=== PATIENT | female | born 1970 | race Caucasian/White ===

== ENCOUNTER → 2020-06-14 15:28 | Outpatient (CLI) | payer OTHER, SELFPAY | PROVIDERS: Visit Provider Physician Assistant | DX: N34.3 Urethral syndrome, unspecified (principal) | CPT/HCPCS: 87077; 87086; 87186 ==

== ENCOUNTER → 2023-04-18 14:18 | Outpatient (CLI) | payer BC, SELFPAY ==
[2023-04-18 15:41] LABS: Appearance Urine UA CLOUDY; Bilirubin Urine UA NEGATIVE (NEGATIVE); Color Urine UA YELLOW; Glucose Urine UA NEGATIVE (Negative); Ketones Urine UA NEGATIVE (NEGATIVE); Leukocyte Esterase Urine UA 2+ (NEGATIVE); Nitrite Urine UA POSITIVE (Negative); Occult Blood Urine UA 3+ (Negative); Protein Urine UA 1+ (Negative); Urobilinogen Urine UA 0.2 E.U./dL (0.2)
[2023-04-18 15:51] LABS: RBC Urine 10-30/HPF (0-5/HPF); WBC Urine 30-100/HPF (0-5/HPF)
[2023-04-18 15:52] LABS: Bacteria Urine Many (>30); Culture Indicated Urine Specimen Cultured; Squamous Epithelial Cell Urine 1-5 /HPF (0-5/HPF); Transitional Epi Cells Urine 0-1/HPF (0-5/HPF)
== END ==
PROVIDERS: PCP Student in an Organized Health Care Education/Training Program; Referring Provider Obstetrics & Gynecology; Visit Provider Obstetrics & Gynecology
DX: R35.0 Frequency of micturition (principal)
CPT/HCPCS: 81001; 87077; 87086; 87186

== ENCOUNTER → 2023-12-21 15:21 | Outpatient (CLI) | payer BC, SELFPAY ==
--- NOTE | 2023-12-21 15:22 | DI.CT.S_ITS ---
PROCEDURE: CT KIDNEY URETER BLADDER (KUB) INDICATIONS: HEMATURIA,PAINLESS,NO PROTENINURIA TECHNIQUE: Axial sections were acquired from the lung bases to the pubic symphysis. Coronal and sagittal reformats were performed. For radiation dose reduction, the following was used: automated exposure control, adjustment of mA and/or kV according to patient size. COMPARISON: None. FINDINGS: Image quality: Diagnostic. Lower Chest: No significant findings. URINARY: Right Kidney: No stones or hydronephrosis. Right Ureter: No hydroureter. Left Kidney: No stones or hydronephrosis. Left Ureter: No hydroureter. Bladder: Normal wall thickness. No stones. ABDOMEN: Liver: No contour-deforming solid mass. Gallbladder: No radiopaque gallstones or wall thickening. Biliary ducts: No biliary dilation. Pancreas: No ductal dilation. Spleen: Size is within normal limits. Adrenal Glands: No adrenal nodules. Stomach and Bowel: Normal colonic caliber, without significant wall thickening. Peritoneum: No abnormal intraperitoneal fluid. No free air. Ventral Wall: No hernia. Abdominal Nodes: No enlarged retroperitoneal or mesenteric lymph nodes. Vessels: Aorta and inferior vena cava are normal in size. PELVIS: Pelvic Organs: Unremarkable. Pelvic Nodes: Unremarkable. Miscellaneous: No inguinal hernias are seen. Bones: Unremarkable. IMPRESSION: No obstructing stones or hydronephrosis. Normal noncontrast appearance of the kidneys. No cause for patient's symptoms is identified. Dictated by: Pb Sahu M.D. on 12/23/2023 at 10:14 Approved by: Pb Sahu M.D. on 12/23/2023 at 10:17
== END ==
PROVIDERS: Family Provider Student in an Organized Health Care Education/Training Program; PCP Student in an Organized Health Care Education/Training Program; Referring Provider Student in an Organized Health Care Education/Training Program; Visit Provider Student in an Organized Health Care Education/Training Program
DX: R31.21 Asymptomatic microscopic hematuria (principal)
CPT/HCPCS: 74176

== ENCOUNTER 2024-03-07 13:45 | Outpatient (RCR) | payer BC, SELFPAY ==
--- NOTE | 2023-10-05 18:45 | PT.OIE ---
Current Diagnoses Unspecified urinary incontinence (10/05/23) Past Medical History (Last Updated 06/14/20 @ 15:34 by Neli Silveira PA-C) UTI (urinary tract infection) Visit Care Team Role Provider Type Binta Heaton PA-C Family Provider Physician Software Configuration Specialist Primary Care Provider Specialty: Medical Address: [place], [address] Email: [email or web address] Buster Milligan MD Attending Provider Non-Staff Referring Provider Specialty: BIOLOGY PROFESSOR Address: [address] [place] [address], [address], [place], [address] Email: Physical Therapy Initial Evaluation PT-OP-A Visit Information Start: 09/27/23 17:50 Freq: Status: Active Protocol: Document 10/05/23 13:52 LRN (Rec: 10/05/23 18:39 LRN [id number]) Out-Patient Physical Therapy Visit Information Visit Information Visit Type Initial Evaluation Visit Start Time 13:52 Visit Stop Time 14:32 Visit Number 1 Evaluation Information Evaluation Date 10/05/23 Precautions Precautions Total hysterectomy 04/05. PT-OP-B Current Condition Start: 09/27/23 17:50 Freq: Status: Active Protocol: Document 10/05/23 13:52 LRN (Rec: 10/05/23 18:39 LRN [id number]) Current Condition History of Current Condition Onset Date Apr 2023 Current Complaints Leaking all the time, especially with sit<>stand transfer. History of Current Condition Total hyste (04/08/23) in [place], got severe bladder infection then she started leaking urine and the leakage has remained the same although cleared of infection. States she leaks all the time. If she drinks what she feels is normal amount, then she leaks all the time. Leaks without an urge, but leaks all the time. Urinary leakage after 3rd child. Prior Treatments and Tests None. Developmental History Developmental History Has had 1-2 UTI's per year since isabel-menopause (past 7-8 yrs). Treatment Goals Patient/Caregiver Goals Pt goals: HEP. Remain continent with sit<> stand, laugh, sneeze cough, walking 2-3 miles. Can't go on boat with spouse, cant go on plan to see parents . Wants to go to [employer] game, needs to be near bathroom at all times. Personal Factors Other Personal Factors That May Effect 3 C-sections (1997, 2000, 2004 Therapy/Recovery ), Hysterectomy 04/05. PT-OP-C Subjective Start: 09/27/23 17:50 Freq: Status: Active Protocol: Document 10/05/23 13:52 LRN (Rec: 10/05/23 18:39 LRN [id number]) Patient Questionnaires Pelvic Pain and Urgency/Frequency Patient Symptom Scale Pelvic Pain Score 17 PT-OP-I Pelvic Floor Start: 09/27/23 17:50 Freq: Status: Active Protocol: Document 10/05/23 13:52 LRN (Rec: 10/05/23 18:39 LRN [id number]) Pelvic Floor Assessment Urine Pelvic Floor Surgery No Urinary Symptoms Urge Sensation Other Urinary Symptoms Leaks uncontrolled through the day. URge to urinate during the night. Leakage Cause Cough,Exercise,Sneeze,Urge Other Leakage Causes Leakage ranges from small to large. Sometimes leaks with coughing, sneezing, lifting. Voiding Frequency 20 Nocturia 4 Pads Used In 24 Hours 20 Urine Pad Type Maxi Pad,Depends Bowel Other Bowel Symptoms 1 Bowel Movement Frequency 1/day Talbot Stool Chart Comments Stool type 3, 4 Pelvic Clock Pelvic Clock 12-3 Tenderness Pelvic Clock 3-6 Tenderness Pelvic Clock 6-9 Tenderness Pelvic Clock 9-12 Tenderness Pelvic Clock Other Very tender at 2 & 4. Small vaginal opening Prolapse Cystocele Grade 1 Prolapse Comments End vaginal canal is palpable at tip of inserted finger ~8.5 cm deep. Perineal Descent Bearing Present Contraction Ability Manual Muscle Testing Left 3 Manual Muscle Testing Right 3 Muscle Endurance (Seconds) 3 Number of Quick Contractions In 10 7 Seconds PT-OP-J Posture/Palpation/Skin Start: 09/27/23 17:50 Freq: Status: Active Protocol: Document 10/05/23 13:52 LRN (Rec: 10/05/23 18:39 LRN [id number]) Posture Evaluation Position Standing Head/C-Spine Posture Side Bent Right,Forward Head L-Spine Posture Increased Lordosis Shoulder Posture (L) Elevated Pelvis Posture Anteriorly Tilted Comments Posture Comments Dowagers hump, flat upper thoracic spine. PT-OP-K Range of Motion Start: 09/27/23 17:50 Freq: Status: Active Protocol: Document 10/05/23 13:52 LRN (Rec: 10/05/23 18:39 LRN [id number]) Lumbar Spine Range of Motion Lumbar Spine Active Degrees Testing Position Standing Flexion 80 Extension 15 Rotation Left 20 Rotation Right 20 Lateral Flexion Left 15 Lateral Flexion Right 15 Hip Goniometric Range of Motion Hip Right Passive Testing Position Supine Internal Rotation 20 External Rotation 50 Comments Approximate measurements Left Passive Testing Position Supine Internal Rotation 30 External Rotation 70 Comments Approximate measurements PT-OP-M Strength Start: 09/27/23 17:50 Freq: Status: Active Protocol: Document 10/05/23 13:52 LRN (Rec: 10/05/23 18:39 LRN [id number]) Hip Strength Hip Manual Muscle Testing Right External Rotation 5 Normal Internal Rotation 5 Normal Left External Rotation 5 Normal Internal Rotation 5 Normal PT-OP-Q Treatments Start: 09/27/23 17:50 Freq: Status: Active Protocol: Document 10/05/23 13:52 LRN (Rec: 10/05/23 18:39 LRN [id number]) Self-Care/Home Management Treatment Education Other Education Discussed results of evaluation, goals, and plan of care (POC) with pt, discussed attendance/cx/dns policy; pt agreeable to goals, attendance /cx/dns policy and POC. Discussed and educated pt in specifics for completion of in use of Bladder Diary and I/S in tracking for 1 week. Discussed use of 2 different diaries for tracking of bladder for next 7 days. Activities Self-Care/Home Management Activities Issued bowel bladder diary and BM types. Issued & reviewed HEP: Kegel ex's and discussed exercise of Quick Flicks, Long Holds and aggrevator (sit<>stand). PT-OP-T Assessment and Plan Start: 09/27/23 17:50 Freq: Status: Active Protocol: Document 10/05/23 13:52 LRN (Rec: 10/05/23 18:39 LRN [id number]) Physical Therapy Assessment Rehab Potential Rehabilitation Potential Good Evaluation Complexity Number of Personal Factors/Comorbidities 1-2 Number of Body Systems Impaired 4 or More Clinical Presentation at Evaluation Evolving Impairments Impairments Activity Tolerance, Coordination,Posture,ROM,Soft Tissue Mobility,Strength, Transfers Goals Four Impairment Pt is not able to hold her urine for any length of time. Impairment Can't go on boat with spouse, can't go on plane to see parents, can't go to [employer] game because needs to carry heavy pads with her and needs to be near a bathroom at all times. Short Term Goal (STG) Pt will be able to coordinate breathe with transfers and ADLs for improved core pressure management. STG Duration 6 wks-11/16/23 Usp Goal (LTG) Improve PF strength with pt able to go on a boat with spouse, fly on a plane, or go to a [employer] game without needing multiple urinary replacement pads. LTG Duration 12 wks-12/28/23 Three Impairment Urge urinary incontinence Impairment Urinary incontinence immediately with an urge. Short Term Goal (STG) Pt will be educated in urinary urge deference technique. STG Duration 2 wks-10/19/23 Crew Leader Goal (LTG) Improve PF strength with pt able to maintain continence in the presence of an urge or strong urge. LTG Duration 12 wks-12/28/23 Two Impairment Stress urinary incontinence Impairment Urinary incontinence with sit< >stand, cough, sneeze, laughing. Short Term Goal (STG) Pt will be educated in normal voiding times and amounts and will be able to identify urge to void and will be able to void on the 1st urinary urge without leakage. STG Duration 6 wks-11/16/23 Usp Goal (LTG) Pt will have decreased complaints of urinary stress incontinent symptoms and will be able to maintain continence with sit<>stand, laugh, sneeze cough, walking 2-3 miles. Can't go on boat with spouse, cant go on plan to see parents . Wants to go to [employer] game, needs to be near bathroom at all times. LTG Duration 12 wks-12/28/23 One Impairment Pt lacks an independent self care HEP. Short Term Goal (STG) Pt will be educated in proper deep breathing to help manage core pressure. STG Duration 2 wks-10/19/23 Crew Leader Goal (LTG) Pt will be independent in a self care HEP for PF/hip/core strengthening. LTG Duration 12 wks-12/28/23 Assessment Summary Assessment Pt is a 53 yo female who appears to have mixed urinary incontinence and inability to hold her urine for any length of time. She has tenderness of the PF around the PF clock, that may be due to tissue irritation (pt has prescription for estrogen therapy) or PF tightness. Pt will benefit from skilled physical therapy for improving her core pressure management, education in transfers and ADLs with improved core pressure management, and possibly PF relaxation techniques and stretching, followed by PF strengthening. Further treatment will be determined based on review of the pt's bladder diary and assessment of hip/core strength and recheck of PF strength. It is expected that the pt's progress might be hindered by soft tissue restriction form her 3 C- sections and recent hysterectomy. The pt will benefit from skilled physical therapy to achieve the above stated goals. Physical Therapy Plan Frequency and Duration Frequency of Treatment 1x/Week Duration of treatment (weeks) 12 Plan of Care Start Date 10/05/23 Plan of Care End Date 12/28/23 Therapeutic Interventions Therapeutic Interventions Home Exercise Program,Joint Mobilizations,Manual Therapy, Neuromuscular Re-education, Self-Care/Home Management,Soft Tissue Mobilization,Taping, Therapeutic Activities, Therapeutic Exercises Modalities Biofeedback,Electric Stimulation Next Visit Focus/Plan Next Visit Plan POC: Pt education, Manual therapy, Biofeedback with vaginal sensor, Therapeutic Exercises, Therapeutic Activities, Neuromuscular Reeducation. Next: MMT hip/trunk, and recheck PF strength anter/ assistant associate professor. Review bladder diary, pt education in bladder retraining with urge deference technique, proper Kegel without use of substitute muscles, education of reduction of intra-abdominal pressure, proper deep breathing, and proper breathing with transfers and body mechanics. Ther Ex: PF/core/hip strengthening, improve R hip mobility. Manual therapy: and hyste scar mob, bladder mob, ilioposas release - posture correction.
--- NOTE | 2023-10-05 18:46 | PT.OPPOC ---
Physical, Occupational & Speech Therapy At [facility] Current Diagnoses Unspecified urinary incontinence (10/05/23) Visit Care Team Role Provider Type Binta Heaton PA-C Family Provider Physician Landscaping Supervisor Primary Care Provider Specialty: Medical Address: [place], [address] Email: [email or web address] Pharmaceutical Buster Milligan MD Attending Provider Non-Staff Referring Provider Specialty: HOT SAW HELPER Address: [address] [place] [address], [facility] [address], [place], [address] Email: Plan Of Care PT-OP-T Assessment and Plan Start: 09/27/23 17:50 Freq: Status: Active Protocol: Document 10/05/23 13:52 LRN (Rec: 10/05/23 18:39 LRN [id number]) Physical Therapy Assessment Rehab Potential Rehabilitation Potential Good Evaluation Complexity Number of Personal Factors/Comorbidities 1-2 Number of Body Systems Impaired 4 or More Clinical Presentation at Evaluation Evolving Impairments Impairments Activity Tolerance, Coordination,Posture,ROM,Soft Tissue Mobility,Strength, Transfers Goals Four Impairment Pt is not able to hold her urine for any length of time. Impairment Can't go on boat with spouse, can't go on plane to see parents, can't go to [employer] game because needs to carry heavy pads with her and needs to be near a bathroom at all times. Short Term Goal (STG) Pt will be able to coordinate breathe with transfers and ADLs for improved core pressure management. STG Duration 6 wks-11/16/23 Mcc Goal (LTG) Improve PF strength with pt able to go on a boat with spouse, fly on a plane, or go to a [employer] game without needing multiple urinary replacement pads. LTG Duration 12 wks-12/28/23 Three Impairment Urge urinary incontinence Impairment Urinary incontinence immediately with an urge. Short Term Goal (STG) Pt will be educated in urinary urge deference technique. STG Duration 2 wks-10/19/23 Irrigating Pump Operator Goal (LTG) Improve PF strength with pt able to maintain continence in the presence of an urge or strong urge. LTG Duration 12 wks-12/28/23 Two Impairment Stress urinary incontinence Impairment Urinary incontinence with sit< >stand, cough, sneeze, laughing. Short Term Goal (STG) Pt will be educated in normal voiding times and amounts and will be able to identify urge to void and will be able to void on the 1st urinary urge without leakage. STG Duration 6 wks-11/16/23 Mcc Goal (LTG) Pt will have decreased complaints of urinary stress incontinent symptoms and will be able to maintain continence with sit<>stand, laugh, sneeze cough, walking 2-3 miles. Can't go on boat with spouse, cant go on plan to see parents . Wants to go to [employer], needs to be near bathroom at all times. LTG Duration 12 wks-12/28/23 One Impairment Pt lacks an independent self care HEP. Short Term Goal (STG) Pt will be educated in proper deep breathing to help manage core pressure. STG Duration 2 wks-10/19/23 Mcc Goal (LTG) Pt will be independent in a self care HEP for PF/hip/core strengthening. LTG Duration 12 wks-12/28/23 Assessment Summary Assessment Pt is a 53 yo female who appears to have mixed urinary incontinence and inability to hold her urine for any length of time. She has tenderness of the PF around the PF clock, that may be due to tissue irritation (pt has prescription for estrogen therapy) or PF tightness. Pt will benefit from skilled physical therapy for improving her core pressure management, education in transfers and ADLs with improved core pressure management, and possibly PF relaxation techniques and stretching, followed by PF strengthening. Further treatment will be determined based on review of the pt's bladder diary and assessment of hip/core strength and recheck of PF strength. It is expected that the pt's progress might be hindered by soft tissue restriction form her 3 C- sections and recent hysterectomy. The pt will benefit from skilled physical therapy to achieve the above stated goals. Physical Therapy Plan Frequency and Duration Frequency of Treatment 1x/Week Duration of treatment (weeks) 12 Plan of Care Start Date 10/05/23 Plan of Care End Date 12/28/23 Therapeutic Interventions Therapeutic Interventions Home Exercise Program,Joint Mobilizations,Manual Therapy, Neuromuscular Re-education, Self-Care/Home Management,Soft Tissue Mobilization,Taping, Therapeutic Activities, Therapeutic Exercises Modalities Biofeedback,Electric Stimulation Next Visit Focus/Plan Next Visit Plan POC: Pt education, Manual therapy, Biofeedback with vaginal sensor, Therapeutic Exercises, Therapeutic Activities, Neuromuscular Reeducation. Next: MMT hip/trunk, and recheck PF strength anter/ oracle database developer. Review bladder diary, pt education in bladder retraining with urge deference technique, proper Kegel without use of substitute muscles, education of reduction of intra-abdominal pressure, proper deep breathing, and proper breathing with transfers and body mechanics. Ther Ex: PF/core/hip strengthening, improve R hip mobility. Manual therapy: and hyste scar mob, bladder mob, ilioposas release - posture correction. Plan of Care Dates Plan of Care Start Date 10/05/23 Plan of Care End Date 12/28/23 Electronically Signed by: Jihan Tai, PT 10/05/23 1686 If you are in agreement with this Plan of Care, please return a signed and dated copy. I have reviewed this Plan of Care and certify that the skilled therapy services above are required to meet the patient?s needs. Physician Signature Date Printed Name and Credentials Clinical Instructor Signature Printed Name and Credentials
--- NOTE | 2023-10-22 15:57 | PT.OTN ---
Current Diagnoses Unspecified urinary incontinence (10/22/23) Physical Therapy Treatment Note PT-OP-A Visit Information Start: 09/27/23 17:50 Freq: Status: Active Protocol: Document 10/22/23 15:39 LRN (Rec: 10/22/23 15:56 LRN [id number]) Out-Patient Physical Therapy Visit Information Visit Information Visit Type Treatment Note Visit Start Time 13:45 Visit Stop Time 14:30 Visit Number 2 PT-OP-B Current Condition Start: 09/27/23 17:50 Freq: Status: Active Protocol: Document 10/05/23 13:52 LRN (Rec: 10/05/23 18:39 LRN [id number]) Current Condition History of Current Condition Onset Date Apr 2023 Current Complaints Leaking all the time, especially with sit<>stand transfer. History of Current Condition [place]04[place]08/23[place], got severe bladder infection then she started leaking urine and the leakage has remained the same although cleared of infection. States she leaks all the time. If she drinks what she feels is normal amount, then she leaks all the time. Leaks without an urge, but leaks all the time. Urinary leakage after 3rd child. Prior Treatments and Tests None. Developmental History Developmental History Has had 1-2 UTI's per year since isabel-menopause (past 7-8 yrs). Treatment Goals Patient/Caregiver Goals Pt goals: HEP. Remain continent with sit<> stand, laugh, sneeze cough, walking 2-3 miles. Can't go on boat with spouse, cant go on plan to see parents . Wants to go to [employer] game, needs to be near bathroom at all times. Personal Factors Other Personal Factors That May Effect 3 C-sections (1997, 2000, 2004 Therapy/Recovery ), Hysterectomy 04/05. PT-OP-C Subjective Start: 09/27/23 17:50 Freq: Status: Active Protocol: Document 10/22/23 15:39 LRN (Rec: 10/22/23 15:56 LRN [id number]) OP-PT Subjective Patient Comments Patient Comments States have had less leakage during the night. Did bladder diary. PT-OP-I Pelvic Floor Start: 09/27/23 17:50 Freq: Status: Active Protocol: Document 10/22/23 15:39 LRN (Rec: 10/22/23 15:56 LRN [id number]) Pelvic Floor Assessment Perineal Descent Resting Absent Bearing Present SEMG (uV) Baseline 1.8 Quick Contraction 16.7 10 Second Contraction 11.5 Recruitment Pattern Good Relaxation Fair Holding Poor/Slow Stability of Hold Poor/Slow SEMG Stability of Rest Good PT-OP-J Posture/Palpation/Skin Start: 09/27/23 17:50 Freq: Status: Active Protocol: Document 10/05/23 13:52 LRN (Rec: 10/05/23 18:39 LRN [id number]) Posture Evaluation Position Standing Head/C-Spine Posture Side Bent Right,Forward Head L-Spine Posture Increased Lordosis Shoulder Posture (L) Elevated Pelvis Posture Anteriorly Tilted Comments Posture Comments Dowagers hump, flat upper thoracic spine. PT-OP-K Range of Motion Start: 09/27/23 17:50 Freq: Status: Active Protocol: Document 10/05/23 13:52 LRN (Rec: 10/05/23 18:39 LRN [id number]) Lumbar Spine Range of Motion Lumbar Spine Active Degrees Testing Position Standing Flexion 80 Extension 15 Rotation Left 20 Rotation Right 20 Lateral Flexion Left 15 Lateral Flexion Right 15 Hip Goniometric Range of Motion Hip Right Passive Testing Position Supine Internal Rotation 20 External Rotation 50 Comments Approximate measurements Left Passive Testing Position Supine Internal Rotation 30 External Rotation 70 Comments Approximate measurements PT-OP-M Strength Start: 09/27/23 17:50 Freq: Status: Active Protocol: Document 10/05/23 13:52 LRN (Rec: 10/05/23 18:39 LRN [id number]) Hip Strength Hip Manual Muscle Testing Right External Rotation 5 Normal Internal Rotation 5 Normal Left External Rotation 5 Normal Internal Rotation 5 Normal PT-OP-Q Treatments Start: 09/27/23 17:50 Freq: Status: Active Protocol: Document 10/22/23 15:39 LRN (Rec: 10/22/23 15:56 LRN [id number]) Therapeutic Exercises Supine Exercises PF 5 SH contractions Supine Exercise Name 5 SH/10 SR Equipment Used Vemg biofeedback Reps/Minutes 10x Comments Extra time needed for training on biofeedback PF Long hold contractions Supine Exercise Name Long Hold contractions 10 SH/ 10 SR Equipment Used Vemg biofeedback Reps/Minutes 10 x 2 Comments Extra time needed for training on biofeedback PF Quick Contractions Supine Exercise Name Quick Flicks 2 SH/5 SR Equipment Used Vemg biofeedback Reps/Minutes 10x 2 Comments Extra time needed for training on biofeedback Resting Supine Exercise Name Resting tone per Vemg biofeedback 1.8 mVs Reps/Minutes 3' Comments Extra time needed for insertion of rectal electrode and positioning of pt PT-OP-T Assessment and Plan Start: 09/27/23 17:50 Freq: Status: Active Protocol: Document 10/22/23 15:39 LRN (Rec: 10/22/23 15:56 LRN [id number]) Physical Therapy Assessment Goals Four Impairment Pt is not able to hold her urine for any length of time. Impairment Can't go on boat with spouse, can't go on plane to see parents, can't go to [employer] game because needs to carry heavy pads with her and needs to be near a bathroom at all times. Short Term Goal (STG) Pt will be able to coordinate breathe with transfers and ADLs for improved core pressure management. STG Duration 6 wks-11/16/23 Prison Goal (LTG) Improve PF strength with pt able to go on a boat with spouse, fly on a plane, or go to a [employer] game without needing multiple urinary replacement pads. LTG Duration 12 wks-12/28/23 Three Impairment Urge urinary incontinence Impairment Urinary incontinence immediately with an urge. Short Term Goal (STG) Pt will be educated in urinary urge deference technique. STG Duration 2 wks-10/19/23 Prison Goal (LTG) Improve PF strength with pt able to maintain continence in the presence of an urge or strong urge. LTG Duration 12 wks-12/28/23 Two Impairment Stress urinary incontinence Impairment Urinary incontinence with sit< >stand, cough, sneeze, laughing. Short Term Goal (STG) Pt will be educated in normal voiding times and amounts and will be able to identify urge to void and will be able to void on the 1st urinary urge without leakage. STG Duration 6 wks-11/16/23 Auto Apprentice Mechanic Goal (LTG) Pt will have decreased complaints of urinary stress incontinent symptoms and will be able to maintain continence with sit<>stand, laugh, sneeze cough, walking 2-3 miles. Can't go on boat with spouse, cant go on plan to see parents . Wants to go to [employer] game, needs to be near bathroom at all times. LTG Duration 12 wks-12/28/23 One Impairment Pt lacks an independent self care HEP. Short Term Goal (STG) Pt will be educated in proper deep breathing to help manage core pressure. STG Duration 2 wks-10/19/23 Prison Goal (LTG) Pt will be independent in a self care HEP for PF/hip/core strengthening. LTG Duration 12 wks-12/28/23 Assessment Summary Assessment Pt is a 53 yo female who appears to have mixed urinary incontinence and inability to hold her urine for any length of time following recent hysterectomy; she has tenderness around the PF clock , due to tissue irritation or PF tightness, soft tissue restriction from her 3 C- sections and recent hysterectomy. Today she was not able to tolerate a vaginal electrode, but was able to tolerate use of anal electrode in vaginal canal. Pt demonstrates a good resting tone of 1.8 mV's, but shows difficulty with lowering her resting tone after PF contractions. Urinary leakage also contributed by small vaginal opening and use of substitute ms and muscle guarding of PF. Will need to review bladder diary at next visit. Physical Therapy Plan Next Visit Focus/Plan Next Note Type Treatment Note Next Visit Plan Next: Review Bladder Diary. MMT hip/trunk, and recheck PF strength anter/oil rag washer. Pt education in bladder retraining with urge deference technique, proper Kegel without use of substitute muscles, education of reduction of intra-abdominal pressure, proper deep breathing, and proper breathing with transfers and body mechanics. Ther Ex: PF/core/hip strengthening, improve R hip mobility. Manual therapy: and hyste scar mob, bladder mob, ilioposas release - posture correction. POC: Pt education, Manual therapy, Biofeedback with vaginal sensor, Therapeutic Exercises, Therapeutic Activities, Neuromuscular Reeducation.
--- NOTE | 2023-10-29 15:49 | PT.OTN ---
Current Diagnoses Unspecified urinary incontinence (10/29/23) Physical Therapy Treatment Note PT-OP-A Visit Information Start: 09/27/23 17:50 Freq: Status: Active Protocol: Document 10/29/23 13:51 LRN (Rec: 10/29/23 14:33 LRN [id number]) Out-Patient Physical Therapy Visit Information Visit Information Visit Type Treatment Note Visit Start Time 13:51 Visit Stop Time 14:30 Visit Number 3 Evaluation Information Evaluation Date 10/05/23 Precautions Precautions Total hysterectomy 04/05. PT-OP-B Current Condition Start: 09/27/23 17:50 Freq: Status: Active Protocol: Document 10/05/23 13:52 LRN (Rec: 10/05/23 18:39 LRN [id number]) Current Condition History of Current Condition Onset Date Apr 2023 Current Complaints Leaking all the time, especially with sit<>stand transfer. History of Current Condition Total hyste (04/08/23) in [place], got severe bladder infection then she started leaking urine and the leakage has remained the same although cleared of infection. States she leaks all the time. If she drinks what she feels is normal amount, then she leaks all the time. Leaks without an urge, but leaks all the time. Urinary leakage after 3rd child. Prior Treatments and Tests None. Developmental History Developmental History Has had 1-2 UTI's per year since isabel-menopause (past 7-8 yrs). Treatment Goals Patient/Caregiver Goals Pt goals: HEP. Remain continent with sit<> stand, laugh, sneeze cough, walking 2-3 miles. Can't go on boat with spouse, cant go on plan to see parents . Wants to go to [email or web address] game, needs to be near bathroom at all times. Personal Factors Other Personal Factors That May Effect 3 C-sections (1997, 2000, 2004 Therapy/Recovery ), Hysterectomy 04/05. PT-OP-C Subjective Start: 09/27/23 17:50 Freq: Status: Active Protocol: Document 10/29/23 13:51 LRN (Rec: 10/29/23 14:33 LRN [id number]) OP-PT Subjective Patient Comments Patient Comments BM daily, urinary leakage every hour. States this morning she had less leakage and urge was more because the leakage is less. PT-OP-I Pelvic Floor Start: 09/27/23 17:50 Freq: Status: Active Protocol: Document 10/22/23 15:39 LRN (Rec: 10/22/23 15:56 LRN [id number]) Pelvic Floor Assessment Perineal Descent Resting Absent Bearing Present SEMG (uV) Baseline 1.8 Quick Contraction 16.7 10 Second Contraction 11.5 Recruitment Pattern Good Relaxation Fair Holding Poor/Slow Stability of Hold Poor/Slow SEMG Stability of Rest Good PT-OP-J Posture/Palpation/Skin Start: 09/27/23 17:50 Freq: Status: Active Protocol: Document 10/05/23 13:52 LRN (Rec: 10/05/23 18:39 LRN [id number]) Posture Evaluation Position Standing Head/C-Spine Posture Side Bent Right,Forward Head L-Spine Posture Increased Lordosis Shoulder Posture (L) Elevated Pelvis Posture Anteriorly Tilted Comments Posture Comments Dowagers hump, flat upper thoracic spine. PT-OP-K Range of Motion Start: 09/27/23 17:50 Freq: Status: Active Protocol: Document 10/05/23 13:52 LRN (Rec: 10/05/23 18:39 LRN [id number]) Lumbar Spine Range of Motion Lumbar Spine Active Degrees Testing Position Standing Flexion 80 Extension 15 Rotation Left 20 Rotation Right 20 Lateral Flexion Left 15 Lateral Flexion Right 15 Hip Goniometric Range of Motion Hip Right Passive Testing Position Supine Internal Rotation 20 External Rotation 50 Comments Approximate measurements Left Passive Testing Position Supine Internal Rotation 30 External Rotation 70 Comments Approximate measurements PT-OP-M Strength Start: 09/27/23 17:50 Freq: Status: Active Protocol: Document 10/29/23 13:51 LRN (Rec: 10/29/23 14:33 LRN [id number]) Trunk Strength Trunk Manual Muscle Testing Core Stabilization Stable core except with rotation. Hip Strength Hip Manual Muscle Testing Right Adduction 4+ Good+ Comments Strength is 5/5 except as indicated above Left Comments Strength is 5/5. PT-OP-Q Treatments Start: 09/27/23 17:50 Freq: Status: Active Protocol: Document 10/29/23 13:51 LRN (Rec: 10/29/23 14:33 LRN [id number]) Therapeutic Exercises Supine Exercises Hip Flex Side bilateral Reps/Minutes 2' Comments MMT taken Ilipsoas stretch Supine Exercise Name Leg off plinth laying at an angle. Side bilateral Reps/Minutes 60 SH each Comments Extra time to determine max juli stretch Sidelying Exercises Hip AB/AD Side bilateral Reps/Minutes 2x each Comments MMT taken Other Exercises Vemg biofeedback strengthening Other Exercise Name Visual feedback with v cuing to isolate PF: Quick and Endurance holds Equipment Used Bolster under legs Reps/Minutes 10 SH Self-Care/Home Management Treatment Education Other Education Urge deference training. Activities Self-Care/Home Management Activities Handout issued for: Urge deference traininig. PT-OP-T Assessment and Plan Start: 09/27/23 17:50 Freq: Status: Active Protocol: Document 10/29/23 13:51 LRN (Rec: 10/29/23 14:33 LRN [id number]) Physical Therapy Assessment Goals Four Impairment Pt is not able to hold her urine for any length of time. Impairment Can't go on boat with spouse, can't go on plane to see parents, can't go to [email or web address] game because needs to carry heavy pads with her and needs to be near a bathroom at all times. Short Term Goal (STG) Pt will be able to coordinate breathe with transfers and ADLs for improved core pressure management. STG Duration 6 wks-11/16/23 Brake Coupler Dinkey Goal (LTG) Improve PF strength with pt able to go on a boat with spouse, fly on a plane, or go to a [employer] game without needing multiple urinary replacement pads. LTG Duration 12 wks-12/28/23 Three Impairment Urge urinary incontinence Impairment Urinary incontinence immediately with an urge. Short Term Goal (STG) Pt will be educated in urinary urge deference technique. 10/29/23: Pt educated in urinary urge deference techinque. STG Duration 2 wks-10/19/23 (10/29/23: MET GOAL) Brake Coupler Dinkey Goal (LTG) Improve PF strength with pt able to maintain continence in the presence of an urge or strong urge. LTG Duration 12 wks-12/28/23 Two Impairment Stress urinary incontinence Impairment Urinary incontinence with sit< >stand, cough, sneeze, laughing. Short Term Goal (STG) Pt will be educated in normal voiding times and amounts and will be able to identify urge to void and will be able to void on the 1st urinary urge without leakage. 10/29/23: Pt educated in normal voiding times. Pt I/S to void on 1st urge. STG Duration 6 wks-11/16/23 progressed Brake Coupler Dinkey Goal (LTG) Pt will have decreased complaints of urinary stress incontinent symptoms and will be able to maintain continence with sit<>stand, laugh, sneeze cough, walking 2-3 miles. Can't go on boat with spouse, cant go on plan to see parents . Wants to go to appweevr, needs to be near bathroom at all times. LTG Duration 12 wks-12/28/23 One Impairment Pt lacks an independent self care HEP. Short Term Goal (STG) Pt will be educated in proper deep breathing to help manage core pressure. STG Duration 2 wks-10/19/23 Senior Living Goal (LTG) Pt will be independent in a self care HEP for PF/hip/core strengthening. 10/29/23: Reviewed Kegel & Aggrevator HEP. LTG Duration 12 wks-12/28/23 progressed 10/29/23 Assessment Summary Assessment Pt is a 53 yo female who appears to have mixed urinary incontinence and inability to hold her urine for any length of time following recent hysterectomy; she has tenderness around the PF clock , possible tissue irritation or PF tightness, soft tissue restriction from her 3 C- sections and recent hysterectomy. Today, reviewed pt's bladder diary from last session and discussed/educated pt in use of urge deference technique to delay urination. Pt is urinating almost every hour and leaking every hour. Sometimes due to ignoring urge and sometimes without urge, possibly due to witholding urination. Pt will try doing aggrevator Kegel exer with walking (after sit<>stand transfer), and will use urge technique to start retrain process of delaying urination. Physical Therapy Plan Frequency and Duration Frequency of Treatment 1x/Week Duration of treatment (weeks) 12 Plan of Care Start Date 10/05/23 Plan of Care End Date 12/28/23 Next Visit Focus/Plan Next Note Type Treatment Note Next Visit Plan Next: Recheck PF strength anter/dance costume designer. Review stretches and issue as HEP, & response to bladder retraining with urge deference technique . Proper Kegel without use of substitute muscles-try estim for awareness of proper contraction, education of reduction of intra-abdominal pressure, proper deep breathing, and proper breathing with transfers and body mechanics. Ther Ex: PF /core/hip strengthening, improve R hip mobility. Manual therapy: and hyste scar mob, bladder mob, ilioposas release - posture correction. POC: Pt education, Manual therapy, Biofeedback with vaginal sensor, Therapeutic Exercises, Therapeutic Activities, Neuromuscular Reeducation.
--- NOTE | 2023-11-05 15:02 | PT.OTN ---
Current Diagnoses Unspecified urinary incontinence (11/05/23) Physical Therapy Treatment Note PT-OP-A Visit Information Start: 09/27/23 17:50 Freq: Status: Active Protocol: Document 11/05/23 13:52 LRN (Rec: 11/05/23 14:52 LRN [id number]) Out-Patient Physical Therapy Visit Information Visit Information Visit Type Treatment Note Visit Start Time 13:52 Visit Stop Time 14:32 Visit Number 4 Evaluation Information Evaluation Date 10/05/23 Precautions Precautions Total hysterectomy 04/05. PT-OP-B Current Condition Start: 09/27/23 17:50 Freq: Status: Active Protocol: Document 10/05/23 13:52 LRN (Rec: 10/05/23 18:39 LRN [id number]) Current Condition History of Current Condition Onset Date Apr 2023 Current Complaints Leaking all the time, especially with sit<>stand transfer. History of Current Condition Total hyste (04/08/23) in [place], got severe bladder infection then she started leaking urine and the leakage has remained the same although cleared of infection. States she leaks all the time. If she drinks what she feels is normal amount, then she leaks all the time. Leaks without an urge, but leaks all the time. Urinary leakage after 3rd child. Prior Treatments and Tests None. Developmental History Developmental History Has had 1-2 UTI's per year since isabel-menopause (past 7-8 yrs). Treatment Goals Patient/Caregiver Goals Pt goals: HEP. Remain continent with sit<> stand, laugh, sneeze cough, walking 2-3 miles. Can't go on boat with spouse, cant go on plan to see parents . Wants to go to [employer] game, needs to be near bathroom at all times. Personal Factors Other Personal Factors That May Effect 3 C-sections (1997, 2000, 2004 Therapy/Recovery ), Hysterectomy 04/05. PT-OP-C Subjective Start: 09/27/23 17:50 Freq: Status: Active Protocol: Document 11/05/23 13:52 LRN (Rec: 11/05/23 14:52 LRN [id number]) OP-PT Subjective Patient Comments Patient Comments Did the one stretch. States the urge deference technique was helpful unless the bladder was really full. States she will leak after using the Vemg electrode; therefore requests use of gown for treatmnet. PT-OP-I Pelvic Floor Start: 09/27/23 17:50 Freq: Status: Active Protocol: Document 10/22/23 15:39 LRN (Rec: 10/22/23 15:56 LRN [id number]) Pelvic Floor Assessment Perineal Descent Resting Absent Bearing Present SEMG (uV) Baseline 1.8 Quick Contraction 16.7 10 Second Contraction 11.5 Recruitment Pattern Good Relaxation Fair Holding Poor/Slow Stability of Hold Poor/Slow SEMG Stability of Rest Good PT-OP-J Posture/Palpation/Skin Start: 09/27/23 17:50 Freq: Status: Active Protocol: Document 10/05/23 13:52 LRN (Rec: 10/05/23 18:39 LRN [id number]) Posture Evaluation Position Standing Head/C-Spine Posture Side Bent Right,Forward Head L-Spine Posture Increased Lordosis Shoulder Posture (L) Elevated Pelvis Posture Anteriorly Tilted Comments Posture Comments Dowagers hump, flat upper thoracic spine. PT-OP-K Range of Motion Start: 09/27/23 17:50 Freq: Status: Active Protocol: Document 10/05/23 13:52 LRN (Rec: 10/05/23 18:39 LRN [id number]) Lumbar Spine Range of Motion Lumbar Spine Active Degrees Testing Position Standing Flexion 80 Extension 15 Rotation Left 20 Rotation Right 20 Lateral Flexion Left 15 Lateral Flexion Right 15 Hip Goniometric Range of Motion Hip Right Passive Testing Position Supine Internal Rotation 20 External Rotation 50 Comments Approximate measurements Left Passive Testing Position Supine Internal Rotation 30 External Rotation 70 Comments Approximate measurements PT-OP-M Strength Start: 09/27/23 17:50 Freq: Status: Active Protocol: Document 10/29/23 13:51 LRN (Rec: 10/29/23 14:33 LRN [id number]) Trunk Strength Trunk Manual Muscle Testing Core Stabilization Stable core except with rotation. Hip Strength Hip Manual Muscle Testing Right Adduction 4+ Good+ Comments Strength is 5/5 except as indicated above Left Comments Strength is 5/5. PT-OP-Q Treatments Start: 09/27/23 17:50 Freq: Status: Active Protocol: Document 11/05/23 13:52 LRN (Rec: 11/05/23 14:52 LRN [id number]) Therapeutic Exercises Supine Exercises Piriformis stretch Supine Exercise Name Ankle over knee>KTC stretch Side right Reps/Minutes 1' Comments Pt needed cuing to relax for stretch Hip Flex Supine Exercise Name SL Hip Ext after Iliopsoas stretch Side bilateral Reps/Minutes 10x each after stretch Comments Extra time for review Ilipsoas stretch Supine Exercise Name Leg off plinth laying at an angle. Side bilateral Reps/Minutes 60 SH each x 3 Comments Extra time for review Standing Exercises Ilipsoas stretch Side bilateral Reps/Minutes 4' Comments Extra time taken to elicit stretch position and max juli stretch Neuro Re-Education Treatment Other Activities Vemg neuro-neo Details Slow progression of intensity from 0-11 on continuous & 11- 13 on 10/ cydl Reps/Duration 22' Comments Pt very guarded, and needed deep breathing between periods of raising intensity. Self-Care/Home Management Treatment Activities Self-Care/Home Management Activities Issued & reviewed HEP: Hip flexor stretch in supine (f/b active hip ext), and standing. PT-OP-T Assessment and Plan Start: 09/27/23 17:50 Freq: Status: Active Protocol: Document 11/05/23 13:52 LRN (Rec: 11/05/23 14:52 LRN [id number]) Physical Therapy Assessment Goals Four Impairment Pt is not able to hold her urine for any length of time. Impairment Can't go on boat with spouse, can't go on plane to see parents, can't go to [employer] game because needs to carry heavy pads with her and needs to be near a bathroom at all times. Short Term Goal (STG) Pt will be able to coordinate breathe with transfers and ADLs for improved core pressure management. STG Duration 6 wks-11/16/23 Test Engineer Goal (LTG) Improve PF strength with pt able to go on a boat with spouse, fly on a plane, or go to a [employer] game without needing multiple urinary replacement pads. LTG Duration 12 wks-12/28/23 Three Impairment Urge urinary incontinence Impairment Urinary incontinence immediately with an urge. Short Term Goal (STG) Pt will be educated in urinary urge deference technique. 10/29/23: Pt educated in urinary urge deference techinque. STG Duration 2 wks-10/19/23 (10/29/23: MET GOAL) [facility] Goal (LTG) Improve PF strength with pt able to maintain continence in the presence of an urge or strong urge. LTG Duration 12 wks-12/28/23 Two Impairment Stress urinary incontinence Impairment Urinary incontinence with sit< >stand, cough, sneeze, laughing. Short Term Goal (STG) Pt will be educated in normal voiding times and amounts and will be able to identify urge to void and will be able to void on the 1st urinary urge without leakage. 10/29/23: Pt educated in normal voiding times. Pt I/S to void on 1st urge. 11/05/23: Pt had been educated in urinary urge deference techinque on 10/29/23 . STG Duration 6 wks-11/16/23 progressed Test Engineer Goal (LTG) Pt will have decreased complaints of urinary stress incontinent symptoms and will be able to maintain continence with sit<>stand, laugh, sneeze cough, walking 2-3 miles. Can't go on boat with spouse, cant go on plan to see parents . Wants to go to [employer] needs to be near bathroom at all times. LTG Duration 12 wks-12/28/23 Assessment Summary Assessment Pt is a 53 yo female who appears to have mixed urinary incontinence and inability to hold her urine for any length of time following recent hysterectomy; she has tenderness around the PF clock , possible tissue irritation or PF tightness, soft tissue restriction from her 3 C- sections and recent hysterectomy. Today review of sup iliopsoas stretch needed for the SL bridge afterwards. Much training needed to get psoas stretch in standing, due to pt doing trunk ext vs hip ext. c/o discomfort with electrode although not on; therefore pt very guarded. She pushed electrode out when doing a Kegel with E-stim. She was not able to get awareness of PF contraction due to guarding and not tolerating intensithy greater than 13 with rectal electrode. Use of vaginal electrode is expected to be tolerated next visit after PF stretching today and home hip stretches. + response to urge deference technique. Urinary leakage while trying to find intensity for PF contraction. Physical Therapy Plan Frequency and Duration Frequency of Treatment 1x/Week Duration of treatment (weeks) 12 Plan of Care Start Date 10/05/23 Plan of Care End Date 12/28/23 Next Visit Focus/Plan Next Note Type Treatment Note Next Visit Plan Next: MMT PF strength anter/ hospital account manager. Proper Kegel without use of substitute muscles-try vaginal electrode estim for awareness of Kegel, Issue HEP: Piriformis stretch. Education of reduction of intra-abdominal pressure, proper deep breathing, and proper breathing with transfers and body mechanics. Ther Ex: PF/core/hip strengthening, improve R hip mobility. Manual therapy: and hyste scar mob, bladder mob, ilioposas release - posture correction. POC: Pt education, Manual therapy, Biofeedback with vaginal sensor, Therapeutic Exercises, Therapeutic Activities, Neuromuscular Reeducation.
--- NOTE | 2023-11-12 16:10 | PT.OTN ---
Current Diagnoses Unspecified urinary incontinence (11/12/23) Physical Therapy Treatment Note PT-OP-A Visit Information Start: 09/27/23 17:50 Freq: Status: Active Protocol: Document 11/12/23 13:47 LRN (Rec: 11/12/23 14:33 LRN [id number]) Out-Patient Physical Therapy Visit Information Visit Information Visit Type Treatment Note Visit Start Time 13:47 Visit Stop Time 14:28 Visit Number 5 Evaluation Information Evaluation Date 10/05/23 Precautions Precautions Total hysterectomy 04/05. PT-OP-B Current Condition Start: 09/27/23 17:50 Freq: Status: Active Protocol: Document 10/05/23 13:52 LRN (Rec: 10/05/23 18:39 LRN [id number]) Current Condition History of Current Condition Onset Date Apr 2023 Current Complaints Leaking all the time, especially with sit<>stand transfer. History of Current Condition Total hyste (04/08/23) in [place], got severe bladder infection then she started leaking urine and the leakage has remained the same although cleared of infection. States she leaks all the time. If she drinks what she feels is normal amount, then she leaks all the time. Leaks without an urge, but leaks all the time. Urinary leakage after 3rd child. Prior Treatments and Tests None. Developmental History Developmental History Has had 1-2 UTI's per year since isabel-menopause (past 7-8 yrs). Treatment Goals Patient/Caregiver Goals Pt goals: HEP. Remain continent with sit<> stand, laugh, sneeze cough, walking 2-3 miles. Can't go on boat with spouse, cant go on plan to see parents . Wants to go to [employer] game, needs to be near bathroom at all times. Personal Factors Other Personal Factors That May Effect 3 C-sections (1997, 2000, 2004 Therapy/Recovery ), Hysterectomy 04/05. PT-OP-C Subjective Start: 09/27/23 17:50 Freq: Status: Active Protocol: Document 11/12/23 13:47 LRN (Rec: 11/12/23 14:33 LRN [id number]) OP-PT Subjective Patient Comments Patient Comments .......... PT-OP-I Pelvic Floor Start: 09/27/23 17:50 Freq: Status: Active Protocol: Document 10/22/23 15:39 LRN (Rec: 10/22/23 15:56 LRN [id number]) Pelvic Floor Assessment Perineal Descent Resting Absent Bearing Present SEMG (uV) Baseline 1.8 Quick Contraction 16.7 10 Second Contraction 11.5 Recruitment Pattern Good Relaxation Fair Holding Poor/Slow Stability of Hold Poor/Slow SEMG Stability of Rest Good PT-OP-J Posture/Palpation/Skin Start: 09/27/23 17:50 Freq: Status: Active Protocol: Document 10/05/23 13:52 LRN (Rec: 10/05/23 18:39 LRN [id number]) Posture Evaluation Position Standing Head/C-Spine Posture Side Bent Right,Forward Head L-Spine Posture Increased Lordosis Shoulder Posture (L) Elevated Pelvis Posture Anteriorly Tilted Comments Posture Comments Dowagers hump, flat upper thoracic spine. PT-OP-K Range of Motion Start: 09/27/23 17:50 Freq: Status: Active Protocol: Document 10/05/23 13:52 LRN (Rec: 10/05/23 18:39 LRN [id number]) Lumbar Spine Range of Motion Lumbar Spine Active Degrees Testing Position Standing Flexion 80 Extension 15 Rotation Left 20 Rotation Right 20 Lateral Flexion Left 15 Lateral Flexion Right 15 Hip Goniometric Range of Motion Hip Right Passive Testing Position Supine Internal Rotation 20 External Rotation 50 Comments Approximate measurements Left Passive Testing Position Supine Internal Rotation 30 External Rotation 70 Comments Approximate measurements PT-OP-M Strength Start: 09/27/23 17:50 Freq: Status: Active Protocol: Document 10/29/23 13:51 LRN (Rec: 10/29/23 14:33 LRN [id number]) Trunk Strength Trunk Manual Muscle Testing Core Stabilization Stable core except with rotation. Hip Strength Hip Manual Muscle Testing Right Adduction 4+ Good+ Comments Strength is 5/5 except as indicated above Left Comments Strength is 5/5. PT-OP-Q Treatments Start: 09/27/23 17:50 Freq: Status: Active Protocol: Document 11/12/23 13:47 LRN (Rec: 11/12/23 14:33 LRN [id number]) Therapeutic Exercises Supine Exercises PF Long hold contractions Reps/Minutes 10SH/20SR x 10 PF Quick Contractions Reps/Minutes 1 SH/1 SR x 10 Manual Therapy Treatment Soft Tissue Mobilization Abdomen Body Location Urachus Mobilization Type Sustained Pressure Body Position Supine scar Mobilization Type Myofascial Release,Sustained Pressure Intensity/Depth Moderate Body Position Supine PF Body Location Superficial and deep layers & perineal node Mobilization Type Sustained Pressure Taping Treatment Focus Mobilize scar tissue Type of Tape Kinesio Tape Skin Inspection Good Comments Pt educated in safe & proper removal of K-tape. Pt I/S of wear time only 5 days. PT-OP-T Assessment and Plan Start: 09/27/23 17:50 Freq: Status: Active Protocol: Document 11/12/23 13:47 LRN (Rec: 11/12/23 14:33 LRN [id number]) Physical Therapy Assessment Goals Four Impairment Pt is not able to hold her urine for any length of time. Impairment Can't go on boat with spouse, can't go on plane to see parents, can't go to [employer] game because needs to carry heavy pads with her and needs to be near a bathroom at all times. Short Term Goal (STG) Pt will be able to coordinate breathe with transfers and ADLs for improved core pressure management. STG Duration 6 wks-11/16/23 Tire Repairman Goal (LTG) Improve PF strength with pt able to go on a boat with spouse, fly on a plane, or go to a [employer] game without needing multiple urinary replacement pads. LTG Duration 12 wks-12/28/23 Three Impairment Urge urinary incontinence Impairment Urinary incontinence immediately with an urge. Short Term Goal (STG) Pt will be educated in urinary urge deference technique. 10/29/23: Pt educated in urinary urge deference techinque. STG Duration 2 wks-10/19/23 (10/29/23: MET GOAL) Tire Repairman Goal (LTG) Improve PF strength with pt able to maintain continence in the presence of an urge or strong urge. LTG Duration 12 wks-12/28/23 Two Impairment Stress urinary incontinence Impairment Urinary incontinence with sit< >stand, cough, sneeze, laughing. Short Term Goal (STG) Pt will be educated in normal voiding times and amounts and will be able to identify urge to void and will be able to void on the 1st urinary urge without leakage. 10/29/23: Pt educated in normal voiding times. Pt I/S to void on 1st urge. 11/05/23: Pt had been educated in urinary urge deference techinque on 10/29/23 . STG Duration 6 wks-11/16/23 progressed Tire Repairman Goal (LTG) Pt will have decreased complaints of urinary stress incontinent symptoms and will be able to maintain continence with sit<>stand, laugh, sneeze cough, walking 2-3 miles. Can't go on boat with spouse, cant go on plan to see parents . Wants to go to [email or web address], needs to be near bathroom at all times. LTG Duration 12 wks-12/28/23 One Impairment Pt lacks an independent self care HEP. Short Term Goal (STG) Pt will be educated in proper deep breathing to help manage core pressure. STG Duration 2 wks-10/19/23 Intermediate Goal (LTG) Pt will be independent in a self care HEP for PF/hip/core strengthening. 10/29/23: Reviewed Kegel & Aggrevator HEP. LTG Duration 12 wks-12/28/23 progressed 10/29/23 Assessment Summary Assessment Pt is a 53 yo female who appears to have mixed urinary incontinence and inability to hold her urine for any length of time following recent hysterectomy; she has tenderness around the PF clock , possible tissue irritation or PF tightness, soft tissue restriction from her 3 C- sections and recent hysterectomy. Today, PF redness is evident, and is sensitive to palpation; probably due to skin irritation from urine and pads . She has areas of tightness of PF (superficial>deep) with + response to TrP treatment although not able to completely clear of deep PF ms because of tolerance to stretching. Pt had loss of urine during stretching; therefore held further stretching and switched to manual scar tissue release. Pt is bound down with her C- section scar with poor separationi from her bladder. Physical Therapy Plan Frequency and Duration Frequency of Treatment 1x/Week Duration of treatment (weeks) 12 Plan of Care Start Date 10/05/23 Plan of Care End Date 12/28/23 Next Visit Focus/Plan Next Note Type Treatment Note Next Visit Plan Next: MMT PF strength anter/ print production associate. Proper Kegel without use of substitute muscles- if not tender in PF, try Vemg, for awareness of Kegel; Issue HEP: Piriformis stretch. Education of reduction of intra-abdominal pressure, proper deep breathing, and proper breathing with transfers and body mechanics. Ther Ex: PF/core/hip strengthening, improve R hip mobility. Manual therapy: and hyste scar mob, bladder mob, ilioposas release - posture correction. POC: Pt education, Manual therapy, Biofeedback with vaginal sensor, Therapeutic Exercises, Therapeutic Activities, Neuromuscular Reeducation.
--- NOTE | 2023-11-22 15:52 | PT.OTN ---
Current Diagnoses Unspecified urinary incontinence (11/22/23) Physical Therapy Treatment Note PT-OP-A Visit Information Start: 09/27/23 17:50 Freq: Status: Active Protocol: Document 11/22/23 14:33 LRN (Rec: 11/22/23 15:47 LRN [id number]) Out-Patient Physical Therapy Visit Information Visit Information Visit Type Treatment Note Visit Start Time 14:33 Visit Stop Time 15:22 Visit Number 6 Evaluation Information Evaluation Date 10/05/23 Precautions Precautions Pt leaking through 2 pads on treatment table. Total hysterectomy 04/05. PT-OP-B Current Condition Start: 09/27/23 17:50 Freq: Status: Active Protocol: Document 10/05/23 13:52 LRN (Rec: 10/05/23 18:39 LRN [id number]) Current Condition History of Current Condition Onset Date Apr 2023 Current Complaints Leaking all the time, especially with sit<>stand transfer. History of Current Condition Total hyste (04/08/23) in [place], got severe bladder infection then she started leaking urine and the leakage has remained the same although cleared of infection. States she leaks all the time. If she drinks what she feels is normal amount, then she leaks all the time. Leaks without an urge, but leaks all the time. Urinary leakage after 3rd child. Prior Treatments and Tests None. Developmental History Developmental History Has had 1-2 UTI's per year since isabel-menopause (past 7-8 yrs). Treatment Goals Patient/Caregiver Goals Pt goals: HEP. Remain continent with sit<> stand, laugh, sneeze cough, walking 2-3 miles. Can't go on boat with spouse, cant go on plan to see parents . Wants to go to [employer] game, needs to be near bathroom at all times. Personal Factors Other Personal Factors That May Effect 3 C-sections (1997, 2000, 2004 Therapy/Recovery ), Hysterectomy 04/05. PT-OP-C Subjective Start: 09/27/23 17:50 Freq: Status: Active Protocol: Document 11/12/23 13:47 LRN (Rec: 11/12/23 14:33 LRN [id number]) OP-PT Subjective Patient Comments Patient Comments .......... PT-OP-I Pelvic Floor Start: 09/27/23 17:50 Freq: Status: Active Protocol: Document 10/22/23 15:39 LRN (Rec: 10/22/23 15:56 LRN [id number]) Pelvic Floor Assessment Perineal Descent Resting Absent Bearing Present SEMG (uV) Baseline 1.8 Quick Contraction 16.7 10 Second Contraction 11.5 Recruitment Pattern Good Relaxation Fair Holding Poor/Slow Stability of Hold Poor/Slow SEMG Stability of Rest Good PT-OP-J Posture/Palpation/Skin Start: 09/27/23 17:50 Freq: Status: Active Protocol: Document 10/05/23 13:52 LRN (Rec: 10/05/23 18:39 LRN [id number]) Posture Evaluation Position Standing Head/C-Spine Posture Side Bent Right,Forward Head L-Spine Posture Increased Lordosis Shoulder Posture (L) Elevated Pelvis Posture Anteriorly Tilted Comments Posture Comments Dowagers hump, flat upper thoracic spine. PT-OP-K Range of Motion Start: 09/27/23 17:50 Freq: Status: Active Protocol: Document 10/05/23 13:52 LRN (Rec: 10/05/23 18:39 LRN [id number]) Lumbar Spine Range of Motion Lumbar Spine Active Degrees Testing Position Standing Flexion 80 Extension 15 Rotation Left 20 Rotation Right 20 Lateral Flexion Left 15 Lateral Flexion Right 15 Hip Goniometric Range of Motion Hip Right Passive Testing Position Supine Internal Rotation 20 External Rotation 50 Comments Approximate measurements Left Passive Testing Position Supine Internal Rotation 30 External Rotation 70 Comments Approximate measurements PT-OP-M Strength Start: 09/27/23 17:50 Freq: Status: Active Protocol: Document 10/29/23 13:51 LRN (Rec: 10/29/23 14:33 LRN [id number]) Trunk Strength Trunk Manual Muscle Testing Core Stabilization Stable core except with rotation. Hip Strength Hip Manual Muscle Testing Right Adduction 4+ Good+ Comments Strength is 5/5 except as indicated above Left Comments Strength is 5/5. PT-OP-Q Treatments Start: 09/27/23 17:50 Freq: Status: Active Protocol: Document 11/22/23 14:33 LRN (Rec: 11/22/23 15:47 LRN [id number]) Therapeutic Exercises Supine Exercises PF Long hold contractions Supine Exercise Name 10 SH contractions without and w/Vemg electrode Equipment Used Bolster under legs with Vemg electrode use Reps/Minutes 10 SH/20 SR Comments Much v cuing & self phy cuing w/hand on TA & gluteals PF Quick Contractions Supine Exercise Name 2 SH contractions without and w/Vemg electrode Equipment Used Bolster under legs with Vemg electrode use Reps/Minutes 2SH/5 SR Comments Much v cuing & self phy cuing w/hand on TA & gluteals Resting Supine Exercise Name Resting tone per Vemg biofeedback 1.8 mVs Equipment Used Vaginal electrode, Bolster under legs Reps/Minutes 3' each x 2 Comments Extra time needed for training to decr tone with breathing PT-OP-T Assessment and Plan Start: 09/27/23 17:50 Freq: Status: Active Protocol: Document 11/22/23 14:33 LRN (Rec: 11/22/23 15:47 LRN [id number]) Physical Therapy Assessment Goals Four Impairment Pt is not able to hold her urine for any length of time. Impairment Can't go on boat with spouse, can't go on plane to see parents, can't go to [employer] game because needs to carry heavy pads with her and needs to be near a bathroom at all times. Short Term Goal (STG) Pt will be able to coordinate breathe with transfers and ADLs for improved core pressure management. STG Duration 6 wks-11/16/23 Kick Press Setter Goal (LTG) Improve PF strength with pt able to go on a boat with spouse, fly on a plane, or go to a [employer] game without needing multiple urinary replacement pads. LTG Duration 12 wks-12/28/23 Three Impairment Urge urinary incontinence Impairment Urinary incontinence immediately with an urge. Short Term Goal (STG) Pt will be educated in urinary urge deference technique. 10/29/23: Pt educated in urinary urge deference techinque. STG Duration 2 wks-10/19/23 (10/29/23: MET GOAL) Kick Press Setter Goal (LTG) Improve PF strength with pt able to maintain continence in the presence of an urge or strong urge. LTG Duration 12 wks-12/28/23 Two Impairment Stress urinary incontinence Impairment Urinary incontinence with sit< >stand, cough, sneeze, laughing. Short Term Goal (STG) Pt will be educated in normal voiding times and amounts and will be able to identify urge to void and will be able to void on the 1st urinary urge without leakage. 10/29/23: Pt educated in normal voiding times. Pt I/S to void on 1st urge. 11/05/23: Pt had been educated in urinary urge deference techinque on 10/29/23 . STG Duration 6 wks-11/16/23 progressed [facility] Goal (LTG) Pt will have decreased complaints of urinary stress incontinent symptoms and will be able to maintain continence with sit<>stand, laugh, sneeze cough, walking 2-3 miles. Can't go on boat with spouse, cant go on plan to see parents . Wants to go to [employer], needs to be near bathroom at all times. LTG Duration 12 wks-12/28/23 One Impairment Pt lacks an independent self care HEP. Short Term Goal (STG) Pt will be educated in proper deep breathing to help manage core pressure. STG Duration 2 wks-10/19/23 [facility] Goal (LTG) Pt will be independent in a self care HEP for PF/hip/core strengthening. 10/29/23: Reviewed Kegel & Aggrevator HEP. LTG Duration 12 wks-12/28/23 progressed 10/29/23 Assessment Summary Assessment 53 yo female, s/p hyste, w/ mixed urinary incontinence and inability to hold her urine for any length of time. Tenderness around the PF clock , & soft tissue restriction from 3 C-sections and recent hyste w/. Today, she had PF tenderness and tightness 5-11 of PF clock. Pt not able to quickly relax her PF ms, but had improved strength of contraction after PF stretching. Most tender at PF clock 7 & 10. Good release with TrP treatment, some tenderness remains; minimal tenderness in the superficial muscles (primarily at 5 of PF clock). Pt having difficulty with PF relaxation after contraction (quick flicks needing ~60 secs to relax) and isolating PF contractions from substitute muscles. Pt had loss of urine during stretching. Did not have time to perform STM to scar that is bound down to bladder. Physical Therapy Plan Next Visit Focus/Plan Next Note Type Treatment Note Next Visit Plan Next: 4 pads under pt to prevent full soak through of pads. Proper Kegel without use of substitute muscles and relaxation phase notable (try giving phys cue to relax @ PF) ; if not tender in PF & no urinary leakage, try Vemg stim for awareness of Kegel; Issue HEP: Piriformis stretch.] Biofeedback for PF relaxation trng. Education of reduction of intra-abdominal pressure, proper deep breathing, and proper breathing with transfers and body mechanics. Educ: Core pressure mgmt: coordinate breathe with transfers and ADLs for improved core pressure management Ther Ex: PF/core/hip strengthening, improve R hip mobility. . Manual therapy: and hyste scar mob, bladder mob, ilioposas release - posture correction. POC: Pt education, Manual therapy, Biofeedback with vaginal sensor, Therapeutic Exercises, Therapeutic Activities, Neuromuscular Reeducation.
--- NOTE | 2023-11-22 15:52 | PT.OTN ---
Current Diagnoses Unspecified urinary incontinence (11/22/23) Physical Therapy Treatment Note PT-OP-A Visit Information Start: 09/27/23 17:50 Freq: Status: Active Protocol: Document 11/22/23 14:33 LRN (Rec: 11/22/23 15:47 LRN [id number]) Out-Patient Physical Therapy Visit Information Visit Information Visit Type Treatment Note Visit Start Time 14:33 Visit Stop Time 15:22 Visit Number 6 Evaluation Information Evaluation Date 10/05/23 Precautions Precautions Pt leaking through 2 pads on treatment table. Total hysterectomy 04/05. PT-OP-B Current Condition Start: 09/27/23 17:50 Freq: Status: Active Protocol: Document 10/05/23 13:52 LRN (Rec: 10/05/23 18:39 LRN [id number]) Current Condition History of Current Condition Onset Date Apr 2023 Current Complaints Leaking all the time, especially with sit<>stand transfer. History of Current Condition Total hyste (04/08/23) in [place], got severe bladder infection then she started leaking urine and the leakage has remained the same although cleared of infection. States she leaks all the time. If she drinks what she feels is normal amount, then she leaks all the time. Leaks without an urge, but leaks all the time. Urinary leakage after 3rd child. Prior Treatments and Tests None. Developmental History Developmental History Has had 1-2 UTI's per year since isabel-menopause (past 7-8 yrs). Treatment Goals Patient/Caregiver Goals Pt goals: HEP. Remain continent with sit<> stand, laugh, sneeze cough, walking 2-3 miles. Can't go on boat with spouse, cant go on plan to see parents . Wants to go to [employer] game, needs to be near bathroom at all times. Personal Factors Other Personal Factors That May Effect 3 C-sections (1997, 2000, 2004 Therapy/Recovery ), Hysterectomy 04/05. PT-OP-C Subjective Start: 09/27/23 17:50 Freq: Status: Active Protocol: Document 11/12/23 13:47 LRN (Rec: 11/12/23 14:33 LRN [id number]) OP-PT Subjective Patient Comments Patient Comments .......... PT-OP-I Pelvic Floor Start: 09/27/23 17:50 Freq: Status: Active Protocol: Document 10/22/23 15:39 LRN (Rec: 10/22/23 15:56 LRN [id number]) Pelvic Floor Assessment Perineal Descent Resting Absent Bearing Present SEMG (uV) Baseline 1.8 Quick Contraction 16.7 10 Second Contraction 11.5 Recruitment Pattern Good Relaxation Fair Holding Poor/Slow Stability of Hold Poor/Slow SEMG Stability of Rest Good PT-OP-J Posture/Palpation/Skin Start: 09/27/23 17:50 Freq: Status: Active Protocol: Document 10/05/23 13:52 LRN (Rec: 10/05/23 18:39 LRN [id number]) Posture Evaluation Position Standing Head/C-Spine Posture Side Bent Right,Forward Head L-Spine Posture Increased Lordosis Shoulder Posture (L) Elevated Pelvis Posture Anteriorly Tilted Comments Posture Comments Dowagers hump, flat upper thoracic spine. PT-OP-K Range of Motion Start: 09/27/23 17:50 Freq: Status: Active Protocol: Document 10/05/23 13:52 LRN (Rec: 10/05/23 18:39 LRN [id number]) Lumbar Spine Range of Motion Lumbar Spine Active Degrees Testing Position Standing Flexion 80 Extension 15 Rotation Left 20 Rotation Right 20 Lateral Flexion Left 15 Lateral Flexion Right 15 Hip Goniometric Range of Motion Hip Right Passive Testing Position Supine Internal Rotation 20 External Rotation 50 Comments Approximate measurements Left Passive Testing Position Supine Internal Rotation 30 External Rotation 70 Comments Approximate measurements PT-OP-M Strength Start: 09/27/23 17:50 Freq: Status: Active Protocol: Document 10/29/23 13:51 LRN (Rec: 10/29/23 14:33 LRN [id number]) Trunk Strength Trunk Manual Muscle Testing Core Stabilization Stable core except with rotation. Hip Strength Hip Manual Muscle Testing Right Adduction 4+ Good+ Comments Strength is 5/5 except as indicated above Left Comments Strength is 5/5. PT-OP-Q Treatments Start: 09/27/23 17:50 Freq: Status: Active Protocol: Document 11/22/23 14:33 LRN (Rec: 11/22/23 15:47 LRN [id number]) Therapeutic Exercises Supine Exercises PF Long hold contractions Supine Exercise Name 10 SH contractions without and w/Vemg electrode Equipment Used Bolster under legs with Vemg electrode use Reps/Minutes 10 SH/20 SR Comments Much v cuing & self phy cuing w/hand on TA & gluteals PF Quick Contractions Supine Exercise Name 2 SH contractions without and w/Vemg electrode Equipment Used Bolster under legs with Vemg electrode use Reps/Minutes 2SH/5 SR Comments Much v cuing & self phy cuing w/hand on TA & gluteals Resting Supine Exercise Name Resting tone per Vemg biofeedback 1.8 mVs Equipment Used Vaginal electrode, Bolster under legs Reps/Minutes 3' each x 2 Comments Extra time needed for training to decr tone with breathing PT-OP-T Assessment and Plan Start: 09/27/23 17:50 Freq: Status: Active Protocol: Document 11/22/23 14:33 LRN (Rec: 11/22/23 15:47 LRN [id number]) Physical Therapy Assessment Goals Four Impairment Pt is not able to hold her urine for any length of time. Impairment Can't go on boat with spouse, can't go on plane to see parents, can't go to [employer] game because needs to carry heavy pads with her and needs to be near a bathroom at all times. Short Term Goal (STG) Pt will be able to coordinate breathe with transfers and ADLs for improved core pressure management. STG Duration 6 wks-11/16/23 Physicist [place] Goal (LTG) Improve PF strength with pt able to go on a boat with spouse, fly on a plane, or go to a [employer] game without needing multiple urinary replacement pads. LTG Duration 12 wks-12/28/23 Three Impairment Urge urinary incontinence Impairment Urinary incontinence immediately with an urge. Short Term Goal (STG) Pt will be educated in urinary urge deference technique. 10/29/23: Pt educated in urinary urge deference techinque. STG Duration 2 wks-10/19/23 (10/29/23: MET GOAL) Physicist [place] Goal (LTG) Improve PF strength with pt able to maintain continence in the presence of an urge or strong urge. LTG Duration 12 wks-12/28/23 Two Impairment Stress urinary incontinence Impairment Urinary incontinence with sit< >stand, cough, sneeze, laughing. Short Term Goal (STG) Pt will be educated in normal voiding times and amounts and will be able to identify urge to void and will be able to void on the 1st urinary urge without leakage. 10/29/23: Pt educated in normal voiding times. Pt I/S to void on 1st urge. 11/05/23: Pt had been educated in urinary urge deference techinque on 10/29/23 . STG Duration 6 wks-11/16/23 progressed Senior Care Goal (LTG) Pt will have decreased complaints of urinary stress incontinent symptoms and will be able to maintain continence with sit<>stand, laugh, sneeze cough, walking 2-3 miles. Can't go on boat with spouse, cant go on plan to see parents . Wants to go to [employer], needs to be near bathroom at all times. LTG Duration 12 wks-12/28/23 One Impairment Pt lacks an independent self care HEP. Short Term Goal (STG) Pt will be educated in proper deep breathing to help manage core pressure. STG Duration 2 wks-10/19/23 Senior Care Goal (LTG) Pt will be independent in a self care HEP for PF/hip/core strengthening. 10/29/23: Reviewed Kegel & Aggrevator HEP. LTG Duration 12 wks-12/28/23 progressed 10/29/23 Assessment Summary Assessment 53 yo female, s/p hyste, w/ mixed urinary incontinence and inability to hold her urine for any length of time. Tenderness around the PF clock , & soft tissue restriction from 3 C-sections and recent hyste w/. Today, she had PF tenderness and tightness 5-11 of PF clock. Pt not able to quickly relax her PF ms, but had improved strength of contraction after PF stretching. Most tender at PF clock 7 & 10. Good release with TrP treatment, some tenderness remains; minimal tenderness in the superficial muscles (primarily at 5 of PF clock). Pt having difficulty with PF relaxation after contraction (quick flicks needing ~60 secs to relax) and isolating PF contractions from substitute muscles. Pt had loss of urine during stretching. Did not have time to perform STM to scar that is bound down to bladder. Physical Therapy Plan Next Visit Focus/Plan Next Note Type Treatment Note Next Visit Plan Next: 4 pads under pt to prevent full soak through of pads. Proper Kegel without use of substitute muscles and relaxation phase notable (try giving phys cue to relax @ PF) ; if not tender in PF & no urinary leakage, try Vemg stim for awareness of Kegel; Issue HEP: Piriformis stretch.] Biofeedback for PF relaxation trng. Education of reduction of intra-abdominal pressure, proper deep breathing, and proper breathing with transfers and body mechanics. Educ: Core pressure mgmt: coordinate breathe with transfers and ADLs for improved core pressure management Ther Ex: PF/core/hip strengthening, improve R hip mobility. . Manual therapy: and hyste scar mob, bladder mob, ilioposas release - posture correction. POC: Pt education, Manual therapy, Biofeedback with vaginal sensor, Therapeutic Exercises, Therapeutic Activities, Neuromuscular Reeducation.
--- NOTE | 2023-11-29 15:46 | PT.OTN ---
Current Diagnoses Unspecified urinary incontinence (11/29/23) Physical Therapy Treatment Note PT-OP-A Visit Information Start: 09/27/23 17:50 Freq: Status: Active Protocol: Document 11/29/23 13:48 LRN (Rec: 11/29/23 15:37 LRN [id number]) Out-Patient Physical Therapy Visit Information Visit Information Visit Type Treatment Note Visit Start Time 13:48 Visit Stop Time 14:33 Visit Number 7 Evaluation Information Evaluation Date 10/05/23 Precautions Precautions Pt leaking through 2 pads on treatment table. Total hysterectomy 04/05. PT-OP-B Current Condition Start: 09/27/23 17:50 Freq: Status: Active Protocol: Document 10/05/23 13:52 LRN (Rec: 10/05/23 18:39 LRN [id number]) Current Condition History of Current Condition Onset Date Apr 2023 Current Complaints Leaking all the time, especially with sit<>stand transfer. History of Current Condition Total hyste (04/08/23) in [place], got severe bladder infection then she started leaking urine and the leakage has remained the same although cleared of infection. States she leaks all the time. If she drinks what she feels is normal amount, then she leaks all the time. Leaks without an urge, but leaks all the time. Urinary leakage after 3rd child. Prior Treatments and Tests None. Developmental History Developmental History Has had 1-2 UTI's per year since isabel-menopause (past 7-8 yrs). Treatment Goals Patient/Caregiver Goals Pt goals: HEP. Remain continent with sit<> stand, laugh, sneeze cough, walking 2-3 miles. Can't go on boat with spouse, cant go on plan to see parents . Wants to go to [employer] game, needs to be near bathroom at all times. Personal Factors Other Personal Factors That May Effect 3 C-sections (1997, 2000, 2004 Therapy/Recovery ), Hysterectomy 04/05. PT-OP-C Subjective Start: 09/27/23 17:50 Freq: Status: Active Protocol: Document 11/29/23 13:48 LRN (Rec: 11/29/23 15:37 LRN [id number]) OP-PT Subjective Patient Comments Patient Comments States she has been dry at night in bed, getting up 3-4x/ night. Urinary leakage with walking, and leaking during the day. Feels she is getting better isolating the muscles, and can tell when she gets fatigued, notes difficulty relaxing PF. Leaking with cough or sneeze, but not with urge; able to make it to bathroom. Patient Questionnaires Pelvic Pain and Urgency/Frequency Patient Symptom Scale Pelvic Pain Score 12 PT-OP-I Pelvic Floor Start: 09/27/23 17:50 Freq: Status: Active Protocol: Document 11/29/23 13:48 LRN (Rec: 11/29/23 15:37 LRN [id number]) Pelvic Floor Assessment Urine Urinary Symptoms Urge Sensation Other Urinary Symptoms Urinary leakage during the day , no leakage at night in bed, getting up 3-4x during the night to urinate. Now able to make it to bathroom with urge to urinate. Leakage Cause Cough,Exercise,Sneeze Other Leakage Causes Leakage ranges from small to large. Sometimes leaks with coughing, sneezing, lifting. Urine Pad Type Maxi Pad,Depends Bowel Bowel Movement Frequency 1x/day [place] Stool Chart Comments Stool type 3, 4 Pelvic Clock Pelvic Clock 12-3 Tenderness Pelvic Clock 9-12 Tenderness Prolapse Cystocele Grade 1 Rectocele Grade 1 Perineal Descent Bearing Present Contraction Ability Manual Muscle Testing Left 3 Manual Muscle Testing Right 3 Manual Muscle Testing Anterior 1 Manual Muscle Testing Posterior 2 PT-OP-J Posture/Palpation/Skin Start: 09/27/23 17:50 Freq: Status: Active Protocol: Document 10/05/23 13:52 LRN (Rec: 10/05/23 18:39 LRN [id number]) Posture Evaluation Position Standing Head/C-Spine Posture Side Bent Right,Forward Head L-Spine Posture Increased Lordosis Shoulder Posture (L) Elevated Pelvis Posture Anteriorly Tilted Comments Posture Comments Dowagers hump, flat upper thoracic spine. PT-OP-K Range of Motion Start: 09/27/23 17:50 Freq: Status: Active Protocol: Document 10/05/23 13:52 LRN (Rec: 10/05/23 18:39 LRN [id number]) Lumbar Spine Range of Motion Lumbar Spine Active Degrees Testing Position Standing Flexion 80 Extension 15 Rotation Left 20 Rotation Right 20 Lateral Flexion Left 15 Lateral Flexion Right 15 Hip Goniometric Range of Motion Hip Right Passive Testing Position Supine Internal Rotation 20 External Rotation 50 Comments Approximate measurements Left Passive Testing Position Supine Internal Rotation 30 External Rotation 70 Comments Approximate measurements PT-OP-M Strength Start: 09/27/23 17:50 Freq: Status: Active Protocol: Document 10/29/23 13:51 LRN (Rec: 10/29/23 14:33 LRN [id number]) Trunk Strength Trunk Manual Muscle Testing Core Stabilization Stable core except with rotation. Hip Strength Hip Manual Muscle Testing Right Adduction 4+ Good+ Comments Strength is 5/5 except as indicated above Left Comments Strength is 5/5. PT-OP-Q Treatments Start: 09/27/23 17:50 Freq: Status: Active Protocol: Document 11/29/23 13:48 LRN (Rec: 11/29/23 15:37 LRN [id number]) Therapeutic Exercises Supine Exercises PF Long hold contractions Supine Exercise Name 10 SH contractions w/focus on relaxation after linsey. Reps/Minutes 5' Comments PF strength assessed in conjunction with PF quick contractions. PF Quick Contractions Supine Exercise Name 2 SH contractions w/focus on relaxation after linsey. Reps/Minutes 2' Comments PF strength assessed in conjunction with PF quick contractions. Manual Therapy Treatment Soft Tissue Mobilization PF stretching Body Location PF stretch w/use of sm wand by PT, then by patient Mobilization Type Sustained Pressure Intensity/Depth Moderate Body Position Upper body elevated 30-40 deg' s w/knee flexed. Comments Pt shown with hand mirror of location of wand and distance of insertion with superficial vs deep muscles. After education pt was given wand to self stretch. Neuro Re-Education Treatment Coordination Activities Coordination of deep breathing and reverse Kegel Details Inhale-Reverse Kegel, Exhale- relax PF; Core pressure mgmt Reps/Duration 19' Comments Pt education in the importance of management of her core pressure with breathe. Much v cuing for PF relaxation on inhale and feeling of drop of PF, then relax on exhale to feel natural lift of PF. Phys cuing at PF with flat of dorsal side of fingers against perineum, cuing to very gently push into fingers with inhale and feel lift away with exhale. V cuing to do a very light reverse Kegel with inhale to facilitate PF stretch. Self-Care/Home Management Treatment Activities Self-Care/Home Management Activities Pt issued handout for Diaphragmatic breathing after coordination training of PF relaxation w/breathe. PT-OP-T Assessment and Plan Start: 09/27/23 17:50 Freq: Status: Active Protocol: Document 11/29/23 13:48 LRN (Rec: 11/29/23 15:37 LRN [id number]) Physical Therapy Assessment Rehab Potential Rehabilitation Potential Good Evaluation Complexity Number of Personal Factors/Comorbidities 1-2 Number of Body Systems Impaired 4 or More Clinical Presentation at Evaluation Evolving Impairments Impairments Activity Tolerance, Coordination,Posture,Soft Tissue Mobility,Strength,Tone, Transfers Goals Four Impairment Pt is not able to hold her urine for any length of time. Impairment Can't go on boat with spouse, can't go on plane to see parents, can't go to [employer] game because needs to carry heavy pads with her and needs to be near a bathroom at all times. Short Term Goal (STG) Pt will be able to coordinate breathe with transfers and ADLs for improved core pressure management. 11/29/23: Initiated coordination of breath with PF relaxation (reverse Kegel on inhale). STG Duration 9 wks-02/01/24 initial progress 11/29/23 Usp Goal (LTG) Improve PF strength with pt able to go on a boat with spouse, fly on a plane, or go to a [employer] game without needing multiple urinary replacement pads. 11/29/23: Pt reporting no urinary leakage in bed, no leakage with urge sensation ( able to control), urinary leakage walking to bathroom. LTG Duration 12 wks-02/21/24 progressed Three Impairment Urge urinary incontinence Impairment Urinary incontinence immediately with an urge. Short Term Goal (STG) Pt will be educated in urinary urge deference technique. 10/29/23: Pt educated in urinary urge deference techinque. STG Duration 2 wks-10/19/23 (10/29/23: MET GOAL) Usp Goal (LTG) Improve PF strength with pt able to maintain continence in the presence of an urge or strong urge. LTG Duration 12 wks-02/21/24 Two Impairment Stress urinary incontinence Impairment Urinary incontinence with sit< >stand, cough, sneeze, laughing. Short Term Goal (STG) Pt will be educated in normal voiding times and amounts and will be able to identify urge to void and will be able to void on the 1st urinary urge without leakage. 10/29/23: Pt educated in normal voiding times. Pt I/S to void on 1st urge. 11/05/23: Pt had been educated in urinary urge deference techinque on 10/29/23 . STG Duration 9 wks-02/01/24 progressed [place] Goal (LTG) Pt will have decreased complaints of urinary stress incontinent symptoms and will be able to maintain continence with sit<>stand, laugh, sneeze cough, walking 2-3 miles. Can't go on boat with spouse, cant go on plan to see parents . Wants to go to [employer] needs to be near bathroom at all times. 11/29/23: No urinary leakage during night in bed and with sit<>stand. LTG Duration 12 wks-02/21/24 progressing 11/29/23 One Impairment Pt lacks an independent self care HEP. Short Term Goal (STG) Pt will be educated in proper deep breathing to help manage core pressure. 11/29/23: Pt educated in deep breathing/Kegel and importance of breathe to manage her core pressure to minimize prolapse progression. STG Duration 9 wks-02/01/24 progressed Usp Goal (LTG) Pt will be independent in a self care HEP for PF/hip/core strengthening. 10/29/23: Reviewed Kegel & Aggrevator HEP. 11/29/23: Issued wand for PF stretching. LTG Duration 12 wks-02/21/24 progressed 11/29/23 Progress Towards Goals Progress Towards Goals Slow Progress - Other Progress Comments Pt has not been able to be scheduled regularly. Assessment Summary Assessment The pt is a 53 yo female, s/p hyste, w/mixed urinary incontinence and inability to hold her urine for any length of time. Tenderness around the PF clock, & soft tissue restriction from 3 C-sections and recent hyste. She is now having less tenderness around the PF clock and can tolerate use of vaginal electrode vs rectal electrode. She is becoming more aware of her PF ability to contract and relax and is now working on PF relaxation with initiation of PF self stretching with a wand . PUF score improved from 17 to 12. The pt will benefit from further skilled physical therapy to improve pt's ability to relax her PF, increase her strength of contraction with ability to relax her PF after contraction , manage her core pressure with transfers and ADLs, and manual therapy to improve tissue mobility of soft tissue restriction from her 3 C- sections and recent hysterectomy. The pt will benefit from skilled physical therapy to achieve the above stated goals. Physical Therapy Plan Frequency and Duration Frequency of Treatment 1x/Week Duration of treatment (weeks) 12 Plan of Care Start Date 11/29/23 Plan of Care End Date 02/21/24 Therapeutic Interventions Therapeutic Interventions Coordination Training,Home Exercise Program,Joint Mobilizations,Manual Therapy, Neuromuscular Re-education, Self-Care/Home Management,Soft Tissue Mobilization, Therapeutic Activities, Therapeutic Exercises Modalities Biofeedback Next Visit Focus/Plan Next Note Type Treatment Note Next Visit Plan (Use 4 pads under pt to prevent full soak through of pads.) Next: Train Isolated Kegel f/ b PF relaxation phase (try giving phys cue to relax @ PF) ; if not tender in PF & no urinary leakage, try Vemg stim for awareness of Kegel and relaxation. Issue HEP: Piriformis stretch. Biofeedback for PF relaxation trng. Training of reduction of intra -abdominal pressure with proper breathing for transfers and ADL body mechanics. Review: Deep breathing coordinating PF relaxation w/ inhale. Ther Ex: PF/core/hip strengthening, improve R hip mobility. Manual therapy: and hyste scar mob, bladder mob, ilioposas release - posture correction. POC: Pt education, Manual therapy, Biofeedback with vaginal sensor, Therapeutic Exercises, Therapeutic Activities, Neuromuscular Reeducation.
--- NOTE | 2024-03-07 16:20 | PT.OTN ---
Current Diagnoses Unspecified urinary incontinence (03/07/24) Physical Therapy Treatment Note PT-OP-A Visit Information Start: 09/27/23 17:50 Freq: Status: Active Protocol: Document 03/07/24 13:47 LRN (Rec: 03/07/24 14:36 LRN [id number]) Out-Patient Physical Therapy Visit Information Visit Information Visit Type Progress Note Visit Start Time 13:47 Visit Stop Time 14:31 Visit Number 8 Evaluation Information Evaluation Date 10/05/23 Precautions Precautions Pt leaking through 2 pads on treatment table. Total hysterectomy 04/05. PT-OP-B Current Condition Start: 09/27/23 17:50 Freq: Status: Active Protocol: Document 10/05/23 13:52 LRN (Rec: 10/05/23 18:39 LRN [id number]) Current Condition History of Current Condition Onset Date Apr 2023 Current Complaints Leaking all the time, especially with sit<>stand transfer. History of Current Condition Total hyste (04/08/23) in [place], got severe bladder infection then she started leaking urine and the leakage has remained the same although cleared of infection. States she leaks all the time. If she drinks what she feels is normal amount, then she leaks all the time. Leaks without an urge, but leaks all the time. Urinary leakage after 3rd child. Prior Treatments and Tests None. Developmental History Developmental History Has had 1-2 UTI's per year since isabel-menopause (past 7-8 yrs). Treatment Goals Patient/Caregiver Goals Pt goals: HEP. Remain continent with sit<> stand, laugh, sneeze cough, walking 2-3 miles. Can't go on boat with spouse, cant go on plan to see parents . Wants to go to [employer] game, needs to be near bathroom at all times. Personal Factors Other Personal Factors That May Effect 3 C-sections (1997, 2000, 2004 Therapy/Recovery ), Hysterectomy 04/05. PT-OP-C Subjective Start: 09/27/23 17:50 Freq: Status: Active Protocol: Document 03/07/24 13:47 LRN (Rec: 03/07/24 14:36 LRN [id number]) OP-PT Subjective Patient Comments Patient Comments Doing ex's but feeling like no improvement. Patient Questionnaires Pelvic Pain and Urgency/Frequency Patient Symptom Scale Pelvic Pain Score 14 PT-OP-I Pelvic Floor Start: 09/27/23 17:50 Freq: Status: Active Protocol: Document 03/07/24 13:47 LRN (Rec: 03/07/24 14:36 LRN [id number]) Pelvic Floor Assessment Urine Other Urinary Symptoms Urinary leakage during day and at night depending on how much she drinks, leaking with changing of position in bed. Leaking several nights a week, then leaks a small amount to get up in night to urinate after leakage has occured. Leakage Size Large Leakage Cause Cough,Exercise,Sneeze Other Leakage Causes walking Leaks Per Day At work, hourly. Voiding Frequency Hourly. Nocturia 4x Pads Used In 24 Hours 6 pads at work, then 6-8 at home. Bowel Other Bowel Symptoms Daily, stool types 3, 4 Pelvic Clock Pelvic Clock Other Tender at Pelvic Clock 7-8. Prolapse Cystocele Grade 2 Perineal Descent Bearing Present Contraction Ability Voluntary Contraction Weak Voluntary Relaxation Weak Manual Muscle Testing Left 3 Manual Muscle Testing Right 3 Manual Muscle Testing Anterior 3 Muscle Endurance (Seconds) 4 Number of Quick Contractions In 10 4 Seconds Comments Pelvic Floor Comments Pt able to relax PF without pushing outwardly, but PF ms is slow to respond. PT-OP-J Posture/Palpation/Skin Start: 09/27/23 17:50 Freq: Status: Active Protocol: Document 10/05/23 13:52 LRN (Rec: 10/05/23 18:39 LRN [id number]) Posture Evaluation Position Standing Head/C-Spine Posture Side Bent Right,Forward Head L-Spine Posture Increased Lordosis Shoulder Posture (L) Elevated Pelvis Posture Anteriorly Tilted Comments Posture Comments Dowagers hump, flat upper thoracic spine. PT-OP-K Range of Motion Start: 09/27/23 17:50 Freq: Status: Active Protocol: Document 10/05/23 13:52 LRN (Rec: 10/05/23 18:39 LRN [id number]) Lumbar Spine Range of Motion Lumbar Spine Active Degrees Testing Position Standing Flexion 80 Extension 15 Rotation Left 20 Rotation Right 20 Lateral Flexion Left 15 Lateral Flexion Right 15 Hip Goniometric Range of Motion Hip Right Passive Testing Position Supine Internal Rotation 20 External Rotation 50 Comments Approximate measurements Left Passive Testing Position Supine Internal Rotation 30 External Rotation 70 Comments Approximate measurements PT-OP-M Strength Start: 09/27/23 17:50 Freq: Status: Active Protocol: Document 10/29/23 13:51 LRN (Rec: 10/29/23 14:33 LRN [id number]) Trunk Strength Trunk Manual Muscle Testing Core Stabilization Stable core except with rotation. Hip Strength Hip Manual Muscle Testing Right Adduction 4+ Good+ Comments Strength is 5/5 except as indicated above Left Comments Strength is 5/5. PT-OP-Q Treatments Start: 09/27/23 17:50 Freq: Status: Active Protocol: Document 03/07/24 13:47 LRN (Rec: 03/07/24 14:36 LRN [id number]) Therapeutic Exercises Supine Exercises PF Long hold contractions Supine Exercise Name PF long hold contractions Reps/Minutes 5' PF Quick Contractions Supine Exercise Name PF Quick contractions Reps/Minutes 3' Sitting Exercises PF relaxation after transfer to sit Sitting Exercise Name Breathing for PF relaxation in sitting and for awareness training. Reps/Minutes 4' Standing Exercises Standing PF relaxation awareness trng Standing Exercise Name Breathing for awareness of PF drop on inhale. Reps/Minutes 17' Therapeutic Activity Therapeutic Activity Transfer training Name Log roll transfer training Reps/Minutes 6' Self-Care/Home Management Treatment Education Other Education Pt educated pt PF mechanics with breath and transfers sit< >stand. Activities Self-Care/Home Management Activities I/S pt to try palpating PF for awareness of mvmt with breath in standing and sitting. PT-OP-T Assessment and Plan Start: 09/27/23 17:50 Freq: Status: Active Protocol: Document 03/07/24 13:47 LRN (Rec: 03/07/24 14:36 LRN [id number]) Physical Therapy Assessment Rehab Potential Rehabilitation Potential Good Evaluation Complexity Number of Personal Factors/Comorbidities 1-2 Number of Body Systems Impaired 4 or More Clinical Presentation at Evaluation Evolving Impairments Impairments Activity Tolerance, Coordination,Posture,Soft Tissue Mobility,Strength,Tone, Transfers Goals Four Impairment Pt is not able to hold her urine for any length of time. Impairment Can't go on boat with spouse, can't go on plane to see parents, can't go to [employer] game because needs to carry heavy pads with her and needs to be near a bathroom at all times. Short Term Goal (STG) Pt will be able to coordinate breathe with transfers and ADLs for improved core pressure management. 11/29/23: Initiated coordination of breath with PF relaxation (reverse Kegel on inhale). 03/07/24: Pt doing incorrect coordination, but educated today in proper core pressure mgmt with PF relaxation with inhale. STG Duration 05/09/24 initial progress Intermediate Goal (LTG) Improve PF strength with pt able to go on a boat with spouse, fly on a plane, or go to a [email or web address] without needing multiple urinary replacement pads. 11/29/23: Pt reporting no urinary leakage in bed, no leakage with urge sensation ( able to control), urinary leakage walking to bathroom. LTG Duration 05/30/24 progressed 11/29/23 Three Impairment Urge urinary incontinence Impairment Urinary incontinence immediately with an urge. Short Term Goal (STG) Pt will be educated in urinary urge deference technique. 10/29/23: Pt educated in urinary urge deference techinque. STG Duration 2 wks-10/19/23 (10/29/23: MET GOAL) Intermediate Goal (LTG) Improve PF strength with pt able to maintain continence in the presence of an urge or strong urge. 03/07/24: Pt reporting she can mostly (90% on avg) hold her urine with a nighttime urge. During day, not able to hold urine with and urge. Not having to go through several pads a night, only using one. LTG Duration 05/30/24 progressed a little 03/07/24. Two Impairment Stress urinary incontinence Impairment Urinary incontinence with sit< >stand, cough, sneeze, laughing. Short Term Goal (STG) Pt will be educated in normal voiding times and amounts and will be able to identify urge to void and will be able to void on the 1st urinary urge without leakage. 10/29/23: Pt educated in normal voiding times. Pt I/S to void on 1st urge. 11/05/23: Pt had been educated in urinary urge deference techinque on 10/29/23 . 03/07/24: Able to identify an urge and will urinate with first urge. STG Duration 05/09/24 mild progress Propellant Charge Loader Goal (LTG) Pt will have decreased complaints of urinary stress incontinent symptoms and will be able to maintain continence with sit<>stand, laugh, sneeze cough, walking 2-3 miles. Can't go on boat with spouse, cant go on plan to see parents . Wants to go to [employer] game, needs to be near bathroom at all times. 11/29/23: No urinary leakage during night in bed and with sit<>stand. 03/07/24: Urinary leakage with changing of positions, and a little leakage transfering to sit<>stand; pt able to make it to bathroom during the night with minimal leakage. LTG Duration 12 wks-02/21/24 progressed 11/29/23 One Impairment Pt lacks an independent self care HEP. Short Term Goal (STG) Pt will be educated in proper deep breathing to help manage core pressure. 11/29/23: Pt educated in deep breathing/Kegel and importance of breathe to manage her core pressure to minimize prolapse progression. 03/07/24: Pt re-educated in deep breathing with handouts issued. STG Duration 05/09/24 progressed education 03/07/24 Intermediate Goal (LTG) Pt will be independent in a self care HEP for PF/hip/core strengthening. 10/29/23: Reviewed Kegel & Aggrevator HEP. 11/29/23: Issued john pemberton for PF stretching. LTG Duration 05/30/24 progressed 11/29/23 Assessment Summary Assessment Pt is a 53 yo female, s/p hyste, w/mixed urinary incontinence and inability to hold her urine for any length of time. She has been seen for 9 visits in 5 months due to vacation schedules and scheduling difficulties. Initial tenderness around the PF clock has decreased to tenderness at pelvic clock 7-8 . She has abdominal soft tissue restriction from 3 C- sections and recent hyste. She returns today after a 3 month for reasons previously mentioned. She attends today showing improper coordination of breathwork with transfers and exercise; therefore poor core pressure management. Today the pt was retrained on proper PF coordination with transfers and breath. She presents with increased urinary leakage in supine and ongoing leakage in standing. She is showing some improvement as her nighttime urinary leakage, as it has decreased. 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 I have not had the change to consistently work with this patient recently; therefore it is recommended that the pt will benefit from continued skilled physical therapy to progress her ability to increase her PF strength and training for relaxation of her PF after contraction. She could also benefit from education to manage her core pressure with transfers and ADLs, and manual therapy to improve tissue mobility of soft tissue restriction from her 3 C- sections and recent hysterectomy. If the pt is not able to improve with a consistent course of PF rehab, then further assessment and options may be needed to be discussed with this patient and she will be referred back to your office. Physical Therapy Plan Frequency and Duration Frequency of Treatment 1x/Week Duration of treatment (weeks) 12 Plan of Care Start Date 03/07/24 Plan of Care End Date 05/30/24 Therapeutic Interventions Therapeutic Interventions Coordination Training,Home Exercise Program,Joint Mobilizations,Manual Therapy, Neuromuscular Re-education, Self-Care/Home Management,Soft Tissue Mobilization, Therapeutic Activities, Therapeutic Exercises Modalities Biofeedback Next Visit Focus/Plan Next Note Type Treatment Note Next Visit Plan (Use 4 pads under pt to prevent full soak through of pads.) Next: Manual therapy for C- section scar and bladder. Review deep breathing and assess if pt proper managing core with transfers. Train Isolated Kegel f/b PF relaxation phase (try giving phys cue to relax @ PF); if not tender in PF & no urinary leakage, try Vemg stim for awareness of Kegel and relaxation. Issue HEP: Piriformis stretch. Biofeedback for PF relaxation trng. Training of reduction of intra -abdominal pressure with proper breathing for transfers and ADL body mechanics. Review: Deep breathing coordinating PF relaxation w/ inhale. Ther Ex: PF/core/hip strengthening, improve R hip mobility. Manual therapy: and hyste scar mob, bladder mob, ilioposas release - posture correction. POC: Pt education, Manual therapy, Biofeedback with vaginal sensor, Therapeutic Exercises, Therapeutic Activities, Neuromuscular Reeducation.
--- NOTE | 2024-09-08 10:44 | PT.OPDS ---
Current Diagnoses Unspecified urinary incontinence (03/07/24) Visit Care Team Role Provider Type Binta Heaton PA-C Family Provider Physician Passementerie Worker Primary Care Provider Specialty: Medical Address: [address] [place] [address], [id number] Email: [email or web address] [employer] Buster Milligan MD Attending Provider Non-Staff Referring Provider Specialty: AIRCRAFT SHIPPING CHECKER Address: [address] [place] [address], [address], [address] Email: Visit Number Visit Number 8 Discharge Summary PT-OP-B Current Condition Start: 09/27/23 17:50 Freq: Status: Active Protocol: Document 10/05/23 13:52 LRN (Rec: 10/05/23 18:39 LRN [id number]) Current Condition History of Current Condition Onset Date Apr 2023 Current Complaints Leaking all the time, especially with sit<>stand transfer. History of Current Condition Total hyste (04/08/23) in [place], got severe bladder infection then she started leaking urine and the leakage has remained the same although cleared of infection. States she leaks all the time. If she drinks what she feels is normal amount, then she leaks all the time. Leaks without an urge, but leaks all the time. Urinary leakage after 3rd child. Prior Treatments and Tests None. Developmental History Developmental History Has had 1-2 UTI's per year since isabel-menopause (past 7-8 yrs). Treatment Goals Patient/Caregiver Goals Pt goals: HEP. Remain continent with sit<> stand, laugh, sneeze cough, walking 2-3 miles. Can't go on boat with spouse, cant go on plan to see parents . Wants to go to [employer], needs to be near bathroom at all times. Personal Factors Other Personal Factors That May Effect 3 C-sections (1997, 2000, 2004 Therapy/Recovery ), Hysterectomy 04/05. PT-OP-C Subjective Start: 09/27/23 17:50 Freq: Status: Active Protocol: Document 03/07/24 13:47 LRN (Rec: 03/07/24 14:36 LRN [id number]) OP-PT Subjective Patient Comments Patient Comments Doing ex's but feeling like no improvement. Patient Questionnaires Pelvic Pain and Urgency/Frequency Patient Symptom Scale Pelvic Pain Score 14 PT-OP-I Pelvic Floor Start: 09/27/23 17:50 Freq: Status: Active Protocol: Document 03/07/24 13:47 LRN (Rec: 03/07/24 14:36 LRN [id number]) Pelvic Floor Assessment Urine Other Urinary Symptoms Urinary leakage during day and at night depending on how much she drinks, leaking with changing of position in bed. Leaking several nights a week, then leaks a small amount to get up in night to urinate after leakage has occured. Leakage Size Large Leakage Cause Cough,Exercise,Sneeze Other Leakage Causes walking Leaks Per Day At work, hourly. Voiding Frequency Hourly. Nocturia 4x Pads Used In 24 Hours 6 pads at work, then 6-8 at home. Bowel Other Bowel Symptoms Daily, stool types 3, 4 Pelvic Clock Pelvic Clock Other Tender at Pelvic Clock 7-8. Prolapse Cystocele Grade 2 Perineal Descent Bearing Present Contraction Ability Voluntary Contraction Weak Voluntary Relaxation Weak Manual Muscle Testing Left 3 Manual Muscle Testing Right 3 Manual Muscle Testing Anterior 3 Muscle Endurance (Seconds) 4 Number of Quick Contractions In 10 4 Seconds Comments Pelvic Floor Comments Pt able to relax PF without pushing outwardly, but PF ms is slow to respond. PT-OP-J Posture/Palpation/Skin Start: 09/27/23 17:50 Freq: Status: Active Protocol: Document 10/05/23 13:52 LRN (Rec: 10/05/23 18:39 LRN [id number]) Posture Evaluation Position Standing Head/C-Spine Posture Side Bent Right,Forward Head L-Spine Posture Increased Lordosis Shoulder Posture (L) Elevated Pelvis Posture Anteriorly Tilted Comments Posture Comments Dowagers hump, flat upper thoracic spine. PT-OP-K Range of Motion Start: 09/27/23 17:50 Freq: Status: Active Protocol: Document 10/05/23 13:52 LRN (Rec: 10/05/23 18:39 LRN [id number]) Lumbar Spine Range of Motion Lumbar Spine Active Degrees Testing Position Standing Flexion 80 Extension 15 Rotation Left 20 Rotation Right 20 Lateral Flexion Left 15 Lateral Flexion Right 15 Hip Goniometric Range of Motion Hip Right Passive Testing Position Supine Internal Rotation 20 External Rotation 50 Comments Approximate measurements Left Passive Testing Position Supine Internal Rotation 30 External Rotation 70 Comments Approximate measurements PT-OP-M Strength Start: 09/27/23 17:50 Freq: Status: Active Protocol: Document 10/29/23 13:51 LRN (Rec: 10/29/23 14:33 LRN [id number]) Trunk Strength Trunk Manual Muscle Testing Core Stabilization Stable core except with rotation. Hip Strength Hip Manual Muscle Testing Right Adduction 4+ Good+ Comments Strength is 5/5 except as indicated above Left Comments Strength is 5/5. PT-OP-T Assessment and Plan Start: 09/27/23 17:50 Freq: Status: Active Protocol: Document 08/21/24 18:07 LRN (Rec: 08/21/24 18:18 LRN Laptop) Physical Therapy Assessment Goals Four Impairment Pt is not able to hold her urine for any length of time. Impairment Can't go on boat with spouse, can't go on plane to see parents, can't go to [employer] because needs to carry heavy pads with her and needs to be near a bathroom at all times. Short Term Goal (STG) Pt will be able to coordinate breathe with transfers and ADLs for improved core pressure management. 11/29/23: Initiated coordination of breath with PF relaxation (reverse Kegel on inhale). 03/07/24: Pt doing incorrect coordination, but educated today in proper core pressure mgmt with PF relaxation with inhale. STG Duration 05/09/24 initial progress , NOT MET GOAL. Alf Goal (LTG) Improve PF strength with pt able to go on a boat with spouse, fly on a plane, or go to a [employer] game without needing multiple urinary replacement pads. 11/29/23: Pt reporting no urinary leakage in bed, no leakage with urge sensation ( able to control), urinary leakage walking to bathroom. LTG Duration 05/30/24 progressed 11/29/23, NOT MET GOAL. Three Impairment Urge urinary incontinence Impairment Urinary incontinence immediately with an urge. Short Term Goal (STG) Pt will be educated in urinary urge deference technique. 10/29/23: Pt educated in urinary urge deference techinque. STG Duration 2 wks-10/19/23 (10/29/23: MET GOAL) Electrotherapist Goal (LTG) Improve PF strength with pt able to maintain continence in the presence of an urge or strong urge. 03/07/24: Pt reporting she can mostly (90% on avg) hold her urine with a nighttime urge. During day, not able to hold urine with and urge. Not having to go through several pads a night, only using one. LTG Duration 05/30/24 progressed a little 03/07/24, NOT MET GOAL. Two Impairment Stress urinary incontinence Impairment Urinary incontinence with sit< >stand, cough, sneeze, laughing. Short Term Goal (STG) Pt will be educated in normal voiding times and amounts and will be able to identify urge to void and will be able to void on the 1st urinary urge without leakage. 10/29/23: Pt educated in normal voiding times. Pt I/S to void on 1st urge. 11/05/23: Pt had been educated in urinary urge deference techinque on 10/29/23 . 03/07/24: Able to identify an urge and will urinate with first urge. STG Duration 05/09/24 mild progress , NOT MET GOAL. Alf Goal (LTG) Pt will have decreased complaints of urinary stress incontinent symptoms and will be able to maintain continence with sit<>stand, laugh, sneeze cough, walking 2-3 miles. Can't go on boat with spouse, cant go on plan to see parents . Wants to go to [employer], needs to be near bathroom at all times. 11/29/23: No urinary leakage during night in bed and with sit<>stand. 03/07/24: Urinary leakage with changing of positions, and a little leakage transfering to sit<>stand; pt able to make it to bathroom during the night with minimal leakage. LTG Duration 12 wks-02/21/24 progressed 11/29/23, NOT MET GOAL. One Impairment Pt lacks an independent self care HEP. Short Term Goal (STG) Pt will be educated in proper deep breathing to help manage core pressure. 11/29/23: Pt educated in deep breathing/Kegel and importance of breathe to manage her core pressure to minimize prolapse progression. 03/07/24: Pt re-educated in deep breathing with handouts issued. STG Duration 05/09/24 progressed education 03/07/24, NOT MET GOAL. Electrotherapist Goal (LTG) Pt will be independent in a self care HEP for PF/hip/core strengthening. 10/29/23: Reviewed Asiya & Emilieevator HEP. 11/29/23: Issued john pemberton for PF stretching. LTG Duration 05/30/24 progressed 11/29/23 , NOT MET GOAL. Assessment Summary Assessment Pt was last seen 03/07/24. Pt was not able to return to PT for new POC because she was out of town; therefore pt was informed by front office that she would be discharged and will need a new referral to be seen again. Pt is a 53 yo female, s/p hyste, w/mixed urinary incontinence with inability to hold her urine for any length of time. She had been seen for 9 visits in 5 months due to vacation schedules and scheduling difficulties; therefore minimal progress was made. She did show some initial tenderness around the PF clock that decreased to only tenderness at pelvic clock 7-8 . She would benefit from further physical therapy if she could commit time to do the exercises and be able to attend therapy more consistently. Physical Therapy Plan Discharge Physical Therapy Discharge Reasons No Longer Attending PT Discharge Comments Please see assessment above. Thank you for your referral.
== END 2024-09-08 14:32 | disposition home or self-care (01) ==
LOC: PHYS 13:45
PROVIDERS: Family Provider Student in an Organized Health Care Education/Training Program; PCP Student in an Organized Health Care Education/Training Program; Referring Provider Obstetrics & Gynecology; Visit Provider Obstetrics & Gynecology
DX: R32 Unspecified urinary incontinence (principal)
CPT/HCPCS: 97110; 97112; 97140; 97162; 97530; 97535